=== PATIENT | male | born 2000 | race Caucasian/White ===

== ENCOUNTER 2023-08-18 09:50 | Outpatient (AMB) | payer OTHER, SELFPAY ==
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
[2023-08-18 09:57] VITALS: BP 122/88; PULSE 87; RESP 18; TEMP 36.9; O2SAT 97; BMI 32.5
== END 2023-08-18 10:40 | disposition home or self-care (01) ==
PROVIDERS: Visit Provider Internal Medicine
DX: Z00.00 Encounter for general adult medical examination without abnormal findings (principal); R07.9 Chest pain, unspecified; S29.9XXS Unspecified injury of thorax, sequela; E04.9 Nontoxic goiter, unspecified
CPT/HCPCS: 99385

== ENCOUNTER 2023-08-18 10:51 | Outpatient (REF) | payer OTHER, SELFPAY ==
[2023-08-18 14:27] LABS: MANUAL DIFF FLAG NO
[2023-08-18 14:41] LABS: Basophils Absolute Auto 0.1 X10*3/uL (0.0-0.2); Eosinophils Absolute Auto 0.2 X10*3/uL (0.0-0.4); Hematocrit 46.5 % (42.0-52.0); Hemoglobin 15.8 g/dl (14.0-18.0); Imm Gran Abs Auto 0.04 X10*3/uL (0.00-0.03); Imm Gran Pct Auto 0.4 % (0.0-0.4); Lymphocytes Absolute Auto 2.8 X10*3/uL (1.2-4.9); Lymphocytes Percent Auto 30.4 % (20-40); Mean Corpuscular Hemoglobin 29.6 pg (27.0-33.0); Mean Corpuscular Volume 87.1 fL (80.0-98.0); Mean Platelet Volume 12.7 fL (9.4-12.4); Monocytes Absolute Auto 0.8 X10*3/uL (0.1-1.2); Monocytes Percent Auto 8.7 % (2-11); Neutrophils Absolute Auto 5.2 x10*3/uL (2.0-8.3); Neutrophils Percent Auto 57.5 % (45-73); Platelet Count 249 X10*3/uL (160-400); Red Blood Count 5.34 X10*6/uL (4.60-5.80); Red Cell Distribution Width 12.7 % (11.0-16.0); White Blood Count 9.1 X10*3/uL (4.8-10.8)
[2023-08-18 15:30] LABS: Alanine Aminotransferase 76 U/L (0-40); Albumin Level 4.6 g/dL (3.5-5.0); Alkaline Phosphatase 107 U/L (39-117); Anion Gap 16 (12-20); Aspartate Amino Transferase 35 U/L (5-37); Bilirubin Total 0.4 mg/dL (0.0-1.0); Blood Urea Nitrogen 14 mg/dL (9-16); Calcium 9.5 mg/dL (8.4-10.2); Carbon Dioxide 21 mmol/L (22-29); Chloride 109 mmol/L (96-108); Cholesterol 170 mg/dL (<200); Estimated Glomerular Filt Rate > 60; Glucose Random 99 mg/dL (60-115); HDL Cholesterol 59 mg/dL (>40); LDL Cholesterol Calculated 86 mg/dL (<100); Potassium 3.8 mmol/L (3.3-5.1); Sodium 142 mmol/L (135-145); Total Protein 7.7 g/dL (6.5-8.0); Triglycerides 128 mg/dL (<150)
== END 2023-08-18 10:52 | disposition home or self-care (01) ==
LOC: HO.WFDLDS 10:51
PROVIDERS: Visit Provider Internal Medicine
DX: Z13.220 Encounter for screening for lipoid disorders (principal); Z13.0 Encounter for screening for diseases of the blood and blood-forming organs and certain disorders involving the immune mechanism; Z13.228 Encounter for screening for other metabolic disorders; Z13.6 Encounter for screening for cardiovascular disorders; E04.9 Nontoxic goiter, unspecified
CPT/HCPCS: 36415; 80053; 80061; 84443; 85025

== ENCOUNTER 2024-03-19 09:01 | Outpatient (AMB) | payer OTHER, SELFPAY ==
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
[2024-03-19 09:07] VITALS: BP 136/86; PULSE 96; O2SAT 98; BMI 32.8
--- OUTSIDE RECORDS SUMMARY | 2024-03-20 19:13 | XMS_ITS | Continuity of Care Document ---
Author Name [facility] Organization [facility] Care Team Providers Care Quality Inspector Name Role Phone [facility] Unavailable Unavailable Problems Combined list of problems from Department of Defense and Veterans Affairs facilities. It does not include entries that were removed or entered in error. Problem Status Onset Date Problem Type Date of Resolution Comments Source EXAM, FORMAL OCCUPATIONAL HEALTH PROGRAM INCLUDING HEARING CONSERVATION PROGRAM, PERIODIC FOR CONTINUED SURVEILLANCE FOR OCCUPATIONAL WORKPLACE EXPOSURE Active 4 Diagnosis 5524N-TH-V- MEDGRP-SJ ASSESSMENT, POST-DEPLOYMENT, DOCUMENTED ON OR2823 Inactive 2 Condition [facility] Chronic rhinitis Active Condition DoD Gastro-esophageal reflux disease without esophagitis Active Condition DoD Other injury of other muscle(s) and tendon(s) at lower leg level, right leg Active Condition [facility] No Known Problems Active Condition [facility] Medications Combined list of outpatient medications from Department of Defense and Veterans Affairs facilities.Medications provided include 1) outpatient medications from the last 15 months, and 2) patient-reported medications. Medication Details Route Status Patient Instructions Prescription Expires Prescription Number Last Dispense Date Ordering Provider Order Date Order Qty Source fluoride 1.1% topical paste See Instruct ions, Apply 1 thin ribbon to toothbru sh. [place] thorough ly at bedtime as directed by provider . do not rinse, eat or drink for 30 minutes. , # 51 g, 3 total refill(s ), Maintena nce, Apply 1 thin ribbon to toothbru sh. [place] thorough ly at bedtime as directed by provider . do not rinse, eat or drink for 30 minutes. , Pharmacy : [facility] Ordered 51.0 0310C-A F-C-66t h MED[facility] 20 mg oral delayed release tablet 1 tab(s), Oral, BID, before a meal, # 42 tab(s), 0 total refill(s ), Maintena nce Oral (given by mouth) Ordered 42.0 0C-A F-C-4Th MEDGRP- SJ Sodium Fluoride (PreviDent 5000 Booster Eq.) Paste 1.1% Dental Take or use exactly as directed . Active 08/17/2024 [id number] 4 2023 51 [facility] Allergies, Adverse Reactions, Alerts Combined list of allergies from Department of Defense and Veterans Affairs facilities. It does not include entries that were removed or entered in error. Substance Category Reaction Severity Reaction type Status Date Reported Comments Source No Known Allergies Drug allergy (disorder) active 12/20/2017 [facility] Immunizations Combined list of available immunizations from the Department of Defense and Veterans Affairs facilities. Immunization Series Date Given Administered By Site Reaction Lot Number CVX Code Drug Director Of Food And Beverage Services Status Comments Source influenza virus vaccine, inactivated 2021 ALYCIAMJOHNSO N Shoul warren, left (delt oid) [id number] 150 ID [employer] April complet ed influenza virus vaccine, inactivat ed 03/29/22 Given 0090C-A F-C-4Th MEDGRP- SJ anthrax vaccine 1 2021 [id number] [employer]gent [employer] Ruffin (MIP) complet ed anthrax vaccine DoD influenza, injectable, quadrivalent- pf 2020 [id number] 150 GlaxoSmithKli ne complet ed influenza , injectabl e, quadrival ent-pf 01/29/21 Given Ambulat ory Pharmac y Influenza, injectable, quadrivalent, preservative free 1 2020 [id number] 150 Smithine (SKB) complet ed Influenza , injectabl e, quadrival ent, preservat lata free DoD typhoid Vi capsular polysaccharid e vac 2020 [id number] sanofi pasteur complet ed typhoid Vi capsular polysacch aride vac 12/04/20 Given Ambulat ory Pharmac y typhoid Vi capsular polysaccharid e vaccine 1 2020 [id number] 101 Sanofi Pasteur (PMC) complet ed typhoid Vi capsular polysacch aride vaccine DoD COVID Vaccine Pfizer 2020 Srikanth boogie Arm [id number] 208 PFIZER complet ed COVID Vaccine Pfizer 11/13/20 Given Ambulat ory Pharmac y SARS-COV-2 (COVID-19) vaccine, mRNA, spike protein, LNP, preservative free, 30 mcg/0.3mL dose 2 2020 CHANO CASTORENA [place] [id number] 208 Pfizer, Inc (PFR) complet ed SARS-COV- 2 (COVID-19 ) vaccine, mRNA, spike protein, LNP, preservat lata free, 30 mcg/0.3mL dose DoD COVID Vaccine Pfizer 2020 Srikanth boogie Arm [id number] 208 PFIZER complet ed COVID Vaccine Pfizer 10/23/20 Given Ambulat ory Pharmac y SARS-COV-2 (COVID-19) vaccine, mRNA, spike protein, LNP, preservative free, 30 mcg/0.3mL dose 1 2020 TERRANCE JULIAN [id number] 208 Pfizer, Inc (PFR) complet ed SARS-COV- 2 (COVID-19 ) vaccine, mRNA, spike protein, LNP, preservat lata free, 30 mcg/0.3mL dose DoD Human Papillomaviru s 9-valent vaccine 2019 [id number] 165 Merck & Company Inc complet ed Human Papilloma virus 9-valent vaccine 01/16/20 Given Ambulat ory Pharmac y influenza, injectable, quadrivalent 2019 [id number] 158 Seqirus complet ed influenza , injectabl e, quadrival ent 01/16/20 Given Ambulat ory Pharmac y influenza, injectable, quadrivalent, contains preservative 1 2019 [id number] 696 158 Seqirus (SEQ) complet ed influenza , injectabl e, quadrival ent, contains preservat lata DoD Human Papillomaviru s 9-valent vaccine 3 2019 [id number] 165 Merck (MSD) complet ed Human Papilloma virus 9-valent vaccine DoD Human Papillomaviru s 9-valent vaccine 2018 [id number] 165 Merck & Company Inc complet ed Human Papilloma virus 9-valent vaccine 04/08/19 Given Ambulat ory Pharmac y Human Papillomaviru s 9-valent vaccine 2 2018 [id number] 165 Merck (MSD) complet ed Human Papilloma virus 9-valent vaccine DoD influenza, injectable, quadrivalent- pf 2018 [id number] 346 150 Seqirus complet ed influenza , injectabl e, quadrival ent-pf 03/21/19 Given Ambulat ory Pharmac y Influenza, injectable, quadrivalent, preservative free 1 2018 [id number] 346 150 Seqirus (SEQ) complet ed Influenza , injectabl e, quadrival ent, preservat lata free DoD Human Papillomaviru s 9-valent vaccine 2018 [id number] 165 Merck & Company Inc complet ed Human Papilloma virus 9-valent vaccine 02/06/19 Given Ambulat ory Pharmac y Human Papillomaviru s 9-valent vaccine 1 2018 [id number] 165 Merck (MSD) complet ed Human Papilloma virus 9-valent vaccine DoD hepatitis A adult vaccine 2018 [id number] 52 GlaxoSmithKli ne complet ed hepatitis A adult vaccine 05/15/18 Given Ambulat ory Pharmac y hepatitis A vaccine, adult dosage 2 2018 [id number] 52 SmithKline (SKB) complet ed hepatitis A vaccine, adult dosage DoD influenza, injectable, quadrivalent- pf 2017 [id number] 150 GlaxoSmithKli ne complet ed influenza , injectabl e, quadrival ent-pf 02/21/18 Given Ambulat ory Pharmac y Influenza, injectable, quadrivalent, preservative free 0 2017 [id number] 150 SmithKline (SKB) complet ed Influenza , injectabl e, quadrival ent, preservat lata free DoD varicella virus vaccine 2017 [id number] 21 Merck & Company Inc complet ed varicella virus vaccine 12/04/17 Given Ambulat ory Pharmac y measles/mumps /rubella virus vaccine 2017 [id number] 03 Merck & Company Inc complet ed measles/m umps/rube lla virus vaccine 12/04/17 Given Ambulat ory Pharmac y measles, mumps and rubella virus vaccine 2 2017 [id number] 03 Merck (MSD) complet ed measles, mumps and rubella virus vaccine DoD varicella virus vaccine 1 2017 [id number] 21 Merck (MSD) complet ed varicella virus vaccine DoD measles/mumps /rubella virus vaccine 2017 [id number] 03 Merck & Company Inc complet ed measles/m umps/rube lla virus vaccine 10/25/17 Given Ambulat ory Pharmac y hepatitis A adult vaccine 2017 [id number] 52 GlaxoSmithKli ne complet ed hepatitis A adult vaccine 10/25/17 Given Ambulat ory Pharmac y varicella virus vaccine 2017 [id number] 21 Merck & Company Inc complet ed varicella virus vaccine 10/25/17 Given Ambulat ory Pharmac y measles, mumps and rubella virus vaccine 1 2017 [id number] 03 Merck (MSD) complet ed measles, mumps and rubella virus vaccine DoD varicella virus vaccine 1 2017 [id number] 21 Merck (MSD) complet ed varicella virus vaccine DoD hepatitis A vaccine, adult dosage 1 2017 [id number] 52 Venturi Wirelessine (SKB) complet ed hepatitis A vaccine, adult dosage DoD adenovirus vaccine, live 2017 [id number] 2 143 Teva Pharmaceutica complet ed adenoviru s vaccine, live 10/19/17 Given Ambulat ory Pharmac y tetanus, diphtheria, acellular pertu is 2017 [id number] 115 [facility] ed tetanus, diphtheri a, acellular pertussis 10/19/17 Given Ambulat ory Pharmac y meningococcal A,C,Y,W-135 (MCV4P) 2017 [id number] 114 sanofi pasteur complet ed meningoco ccal A,C,Y,W-1 35 (MCV4P) 10/19/17 Given Ambulat ory Pharmac y poliovirus vaccine, inactivated 2017 [id number] 10 sanofi pasteur complet ed polioviru s vaccine, inactivat ed 10/19/17 Given Ambulat ory Pharmac y poliovirus vaccine, inactivated 1 2017 [id number] 10 Sanofi Pasteur (PMC) complet ed polioviru s vaccine, inactivat ed DoD meningococcal polysaccharid e (groups A, C, Y and W-135) diphtheria toxoid conjugate vaccine (MCV4P) 1 2017 [id number] 114 Sanofi Pasteur (PMC) complet ed meningoco ccal polysacch aride (groups A, C, Y and W-135) diphtheri a toxoid conjugate vaccine (MCV4P) DoD tetanus toxoid, reduced diphtheria toxoid, and acellular pertu is vaccine, adsorbed 1 2017 [id number] 115 Venturi Wirelessine (SKB) complet ed tetanus toxoid, reduced diphtheri a toxoid, and acellular pertussis vaccine, adsorbed DoD Adenovirus, type 4 and type 7, live, oral 1 2017 [id number] 2 143 [employer] (BRR) complet ed Adenoviru s, type 4 and type 7, live, oral DoD measles virus vaccine 0 2017 05 () Not Given measles virus vaccine DoD rubella virus vaccine 0 2017 06 () Not Given rubella virus vaccine DoD hepatitis B vaccine, unspecified formulation 0 2017 45 () Not Given hepatitis B vaccine, unspecifi ed formulati on DoD Results Combined list of recent chemistry, hematology and other laboratory results from Department of Defense and Veterans Affairs, ranging from 15 months to all on record, depending upon the facility. Order Name Results Value Reference Range Date Interpretation Specimen Comments Source Thuan torres [facility] Repository Sample Received (09/08/23 9:38 AM) 09/07 N [facility] Pharmacy Infectio us Disease HIV-1/O/2 Non-Reac tive 3 (09/08/23 9:38 AM) 09/07 N Interpretiv e Data: INTERPRETAT ION: This method is a screening procedure for the detection of HIV p24 Antigen and Antibodies to HIV-1, including Group O, and/or HIV-2. NON-REACTIV E: HIV-1 antigen and HIV-1 / HIV-2 antibodies were not detected. No laboratory evidence of HIV infection. A negative test result does not exclude the possibility of exposure to or infection with HIV. HIV antibodies and/or p24 antigen may be undetectabl e in some stages of the infection and in some clinical conditions. If acute HIV infection is suspected, consider submitting another specimen to a reference laboratory for HIV-1 RNA. SCREEN REACTIVE - CONFIRMATIO N TO FOLLOW: Possible presence of HIV-1antibo dies, HIV-2 antibodies and/or HIV-1 p24 antigen. Specimen will reflex to the confirmatio n testing that fulfills the Center for Disease Control and Prevention' s HIV diagnostic algorithm. Refer to [facility] Lab Guide for additional information : [email or web address]/la [email or web address] x Testing performed by Alannah powell. [facility] Infectio us Disease HIV-1/O/2. EPI NON-REAC TIVE 01/28 Result Comment: INTERPRETAT ION(S): This method is a screening procedure for the detection of HIV p24 Antigen and Antibodies to HIV-1, including Group O, and/or HIV-2. NON-REACTIV E: HIV-1 antigen and HIV-1 / HIV-2 antibodies were not detected. No laboratory evidence of HIV infection. A negative test result does not exclude the possibility of exposure to or infection with HIV. HIV antibodies and/or p24 antigen may be undetectabl e in some stages of the infection and in some clinical conditions. If acute HIV infection is suspected, consider submitting another specimen to a reference laboratory for HIV-1 RNA. SCREEN REACTIVE - CONFIRMATIO N TO FOLLOW: Possible presence of HIV-1 antibodies, HIV-2 antibodies and/or HIV-1 p24 antigen. Specimen will reflex to the confirmatio n testing that fulfills the Center for Disease Control and Prevention' s HIV diagnostic algorithm. Refer to [facility] Lab Guide for additional information : [email or web address]/ [email or web address]/EPIL ab/Pages/la [email or web address] x Testing performed by Alannah powell. Performed by: [facility] [employer] [address] [place] [id number] [facility] Ericacella melissa Sendouts Repository Sample.EPI RECEIVED 01/28 Result Comment: INTERPRETAT ION(S): Performed by: [facility] [employer] [address] [place] [id number] [facility] Vital Signs Combined list of inpatient and outpatient Vital Signs from Department of Defense and Veterans Affairs, ranging from 12 months to all on record, depending upon the facility. Vital Sign Value Date Comments Source Systolic Blood Pressure 122mm[Hg] 07/27/2022 12:37:00 Ambulatory Pharmacy Diastolic Blood Pressure 96mm[Hg] 07/27/2022 12:37:00 Ambulatory Pharmacy Mean Arterial Pressure, Calc 105mm[Hg] 07/27/2022 12:37:00 Ambulatory P harmacy Peripheral Pulse Rate 86bpm 07/27/2022 12:37:00 Ambulatory Pharmacy Respiratory Rate 16br/min 07/27/2022 12:37:00 Ambulatory Pharmacy BP Site 07/27/2022 12:37:00 Ambul atory Pharmacy Blood Pressure Manual 07/27/2022 12:37:00 Ambulatory Pharmacy Systolic Blood Pressure 119mm[Hg] 07/25/2022 18:18:00 Ambulatory Pharmacy Diastolic Blood Pressure 86mm[Hg] 07/25/2022 18:18:00 Ambulatory Pharmacy Mean Arterial Pressure, Calc 97mm[Hg] 07/25/2022 18:18:00 Ambulatory P harmacy Peripheral Pulse Rate 92bpm 07/25/2022 18:18:00 Ambulatory Pharmacy Respiratory Rate 16br/min 07/25/2022 18:18:00 Ambulatory Pharmacy BP Site 07/25/2022 18:18:00 Ambul atory Pharmacy Blood Pressure Manual 07/25/2022 18:18:00 Ambulatory Pharmacy Systolic Blood Pressure 132mm[Hg] 07/22/2022 18:49:00 Ambulatory Pharmacy Diastolic Blood Pressure 70mm[Hg] 07/22/2022 18:49:00 Ambulatory Pharmacy Mean Arterial Pressure, Calc 91mm[Hg] 07/22/2022 18:49:00 Ambulatory P harmacy Peripheral Pulse Rate 78bpm 07/22/2022 18:49:00 Ambulatory Pharmacy Respiratory Rate 18br/min 07/22/2022 18:49:00 Ambulatory Pharmacy Temperature Tympanic 36.5Cel 07/22/2022 18:49:00 Ambulatory Pharmacy BP Site 07/22/2022 18:49:00 Ambul atory Pharmacy Blood Pressure Manual 07/22/2022 18:49:00 Ambulatory Pharmacy Systolic Blood Pressure 134mm[Hg] 07/13/2022 12:14:00 Ambulatory Pharmacy Diastolic Blood Pressure 84mm[Hg] 07/13/2022 12:14:00 Ambulatory Pharmacy Mean Arterial Pressure, Calc 101mm[Hg] 07/13/2022 12:14:00 Ambulatory P harmacy Peripheral Pulse Rate 98bpm 07/13/2022 12:14:00 Ambulatory Pharmacy Respiratory Rate 18br/min 07/13/2022 12:14:00 Ambulatory Pharmacy Temperature Oral 36.7Cel 07/13/2022 12:14:00 Ambulatory Pharmacy Systolic Blood Pressure 114mm[Hg] 07/26/2022 11:58:00 Ambulatory Pharmacy Diastolic Blood Pressure 90mm[Hg] 07/26/2022 11:58:00 Ambulatory Pharmacy Mean Arterial Pressure, Calc 98mm[Hg] 07/26/2022 11:58:00 Ambulatory P harmacy Peripheral Pulse Rate 92bpm 07/26/2022 11:58:00 Ambulatory Pharmacy Respiratory Rate 16br/min 07/26/2022 11:58:00 Ambulatory Pharmacy BP Site 07/26/2022 11:58:00 Ambul atory Pharmacy Blood Pressure Manual 07/26/2022 11:58:00 Ambulatory Pharmacy Encounters Combined list of: 1) Encounters from Department of Veterans Affairs facilities going back up to thelast 18 months. 2) Encounters from the Department of Defense facilities going back up to 280 months. Location Location Details Encounter Type Encounter Number Reason For Visit Attending Provider ADM Date DC Date Status Disposition Source [facility] [place] [address](Hea ring Conservat ion, BMT) OUTPATIENT [id number] GALILEA RODRIGUEZ 10/26 Released w/o Limitations [facility] [place] [address](H earing Conserv ation, BMT) [facility] [place] [address]([facility]) OUTPATIENT [id number] Notes Entered by: ROSS CAVANAUGH 30 Oct 2017 0728 ------- ------- ------- ------- -- Strep Prophyl axis LANI CAVANAUGH 10/30 Released w/o Limitations [facility] [place] [address]([facility] d) [facility] [place] [address](LISA Alpha) OUTPATIENT [id number] Notes Entered by: KYAW EAST 03 Nov 2017 1020 ------- ------- ------- ------- -- allergy symptom s SANTY LAGUNA 11/03 Released w/o Limitations [facility] [place] [address](M Alpha) [place] OUTPATIENT [id number] LT THIRD TOE IGT MARIA FERNANDA DEWITT 01/23 Released w/o Limitations [place]) [place] OUTPATIENT [id number] Notes Entered by: NACHO PEÑA 07 Feb 2018 0544 ------- ------- ------- ------- -- RT KNEE IZABELA ZUÑIGAARPIT 02/07 Released with Work/Duty Limitations [place]) [place] Occupatio nal Health) OUTPATIENT [id number] [facility] ROSI AGUILA 02/12 Released w/o Limitations [place] Occupat ional Health) [place]) OUTPATIENT [id number] ATC #[id number] RT KNEE VALERIE ALATORRE 02/26 Released with Work/Duty Limitations [place]) [place]) OUTPATIENT [id number] atc- R KNEE F/U # VALERIE ALATORRE 03/05 Released w/o Limitations [place] C [facility]) [place] Hearing Conservat ion) OUTPATIENT [id number] EDUCATI ON & GEMMA DURAND 03/12 Released w/o Limitations [place] Hearing Conserv ation) [place]) OUTPATIENT [id number] RT KNEE PN IVÁN CRUZ 03/19 Released w/o Limitations [place] C [facility]) [employer]([facility]) OUTPATIENT [id number] [facility] [address] JOEL HOLMAN 05/30 Released w/o Limitations [employer]([facility] IMR Clinic) [employer](HCO S Primary Care) TELE CONSULT [id number] Notes Entered by: MAYDA BENOIT 29 Jun 2018 0757 ------- ------- ------- ------- -- MAYDA Álvarez 06/29 Immediate Referral [employer](H COS Primary Care) [employer](HCO S Primary Care) TELE CONSULT [id number] Notes Entered by: JEFFERSON RODRIGUEZ 29 Jun 2018 1122 ------- ------- ------- ------- -- Request for s MAYDA BENOIT Santiago 06/29 Sick at Home/Quarter s [employer](H COS Primary Care) [employer](HCO S Primary Care) OUTPATIENT [id number] callejas splints ALAYNA MURILLO 07/09 Released w/o Limitations [employer](H COS Primary Care) [employer](HCO S Primary Care) OUTPATIENT [id number] allergi es ALAYNA MURILLO 07/30 Released w/o Limitations [employer](H COS Primary Care) [employer]([facility]) OUTPATIENT [id number] A ONLY ([phone]) XENIA SANABRIA 08/09 Released w/o Limitations [employer](O [facility]) [employer]([facility]) OUTPATIENT [id number] Notes Entered by: GILBERTO CHASE 15 Aug 2018 1032 ------- ------- ------- ------- -- RECORD REVIEW FATMATA DUMONT 08/15 Released w/o Limitations [employer]([facility]) [employer](HCO S Primary Care) OUTPATIENT [id number] PHA RECORD CLOSURE ALAYNA MURILLO 08/15 Released w/o Limitations [employer](H COS Primary Care) [employer](OMR S Primary Care_1) TELE CONSULT [id number] Notes Entered by: YUMIKO LOCKHART SE 25 Sep 2018 1009 ------- ------- ------- ------- -- pt seen at the er and needs s MAYDA BENOIT Santiago 09/25 Other Not Elsewhere Classified [employer](O MRS Primary Care_1) [employer](HCO S Primary Care) TELE CONSULT [id number] Notes Entered by: Laina PRAJAPATI 24 Oct 2018 0859 ------- ------- ------- ------- -- Network Results UC Back Pain 3.22.20 19 LIDIAALAYNA Crow 10/24 [facility]) [facility] Primary Care) TELE CONSULT [id number] Notes Entered by: CÉSAR HENSON 06 Nov 2018 1125 ------- ------- ------- ------- -- Qtr/ Con leave for wisdom teeth being removed . [id number] MAYDA BENOIT 11/06 Other Not Elsewhere Classified [facility] Primary Care) [facility] Primary Care) OUTPATIENT [id number] rt leg pain LIDIAALAYNA Crow 11/19 Released w/o Limitations [facility] Primary Care) [facility] S Physical Therapy) OUTPATIENT [id number] Pain in unspeci fied lower leg KENN CAMPOS 12/03 Released w/o Limitations [facility](O MRS Physica l Therapy ) [facility] Primary Care) OUTPATIENT [id number] Rt leg pain X3days. XENIA SELBY 05/14 Released w/o Limitations [facility] Primary Care) [facility](Richi Muñoz) OUTPATIENT [id number] Audiogr am IAN VALENTINO O 05/16 Released w/o Limitations [employer](S jenn Muñoz ) [facility] Primary Care) OUTPATIENT [id number] leg cramp on last lap of PT test - stopped LIDIAALAYNA Crow 05/23 Released w/o Limitations [facility] Primary Care) [facility](R S IMR Clinic) OUTPATIENT [id number] [place] [address]A FATMATA CORRIGAN 05/30 Released w/o Limitations [employer](O [facility] IMR Clinic) [facility](O Primary Care) OUTPATIENT [id number] cough,s ore throat, running nose [id number] /not getting better. XENIA SELBY 06/16 Released w/o Limitations [employer](H COS Primary Care) [employer](OMR S Physical Therapy) OUTPATIENT [id number] Pain in left leg KENN CAMPOS 07/01 Released w/o Limitations [employer](O MRS Physica l Therapy ) [employer](OMR S Primary Care_1) TELE CONSULT [id number] Notes Entered by: Rebecca GOODE 07 Aug 2019 1445 ------- ------- ------- ------- -- PRIORIT Y PHA NEGRAFFENR JESUS PINA S 08/06 Advice Assessment [employer](O MRS Primary Care_1) [employer](HCO S Primary Care) OUTPATIENT [id number] PHA RECORD CLOSURE ALAYNA MURILLO 10/02 Released w/o Limitations [employer](H COS Primary Care) [employer](OMR S Flight Med) OUTPATIENT [id number] Notes Entered by: LOY HANCOCK 13 Dec 2019 1018 ------- ------- ------- ------- -- cough x 4days JOSE CURTIS 12/12 Sick at Home/Quarter s [employer](O MRS Flight Med) [employer]([facility]) OUTPATIENT [id number] DRCIERRA 1 SPENCER HONEYCUTT 02/24 Released w/o Limitations [employer](O MRS IMR Clinic) [employer](Richi Muñoz) OUTPATIENT [id number] AUDIOGR AM TERRANCE JULIAN 05/26 Released w/o Limitations [employer](S jenn Muñoz ) [employer](OMR S Flight Med) OUTPATIENT [id number] JOEL HOLMAN 05/27 Released w/o Limitations [employer](O MRS Flight Med) [employer]([facility]) OUTPATIENT [id number] Notes Entered by: BALWINDER CAIN 07 Aug 2020 0838 ------- ------- ------- ------- -- VDC IVA VÁZQUEZ 08/07 Released w/o Limitations [employer](V irus Detecti on Center) [employer](Vir us Detection Center) OUTPATIENT [id number] Notes Entered by: KIMBERLY DONNELLY 10 Aug 2020 0906 ------- ------- ------- ------- -- vd ZIA GALLARDO 08/10 Sick at Home/Quarter s [employer](V irus Detecti on Center) [facility](HCO S Primary Care) TELE CONSULT [id number] Notes Entered by: OLIVIA GALLARDO 11 Aug 2020 0734 ------- ------- ------- ------- -- Negativ e COVID test ANNE-MARIE MAY 08/11 Released to Self Care [employer](H COS Primary Care) [facility](OMR S IMR Clinic) OUTPATIENT [id number] MHA/PHA ) SPENCER HONEYCUTT 11/10 Released w/o Limitations [facility] [facility](O MRS IMR Clinic) [facility] S IMR Clinic) TELE CONSULT [id number] Notes Entered by: Ollie PAGAN 30 Nov 2020 0947 ------- ------- ------- ------- -- [facility] STATUS FRANCISCO PAGAN 11/30 Released to Self Care [employer] [facility](O MRS IMR Clinic) [employer](OMR S Primary Care_1) OUTPATIENT [id number] Notes Entered by: Crow SIMON 04 Dec 2020 1502 ------- ------- ------- ------- -- SAYRA Molina 12/04 Released w/o Limitations [employer] [facility] [employer](O MRS Primary Care_1) [employer]([facility] us Detection Center) OUTPATIENT [id number] 5 Notes Entered by: YENNI SPAULDING 23 Apr 2021 0957 ------- ------- ------- ------- -- VDC AVANI BENNETT 04/23 Sick at Home/Quarter s [facility](V ir[facility] Detecti on Center) [facility](HCO S Primary Care) TELE CONSULT [id number] Notes Entered by: MARK SANTIAGO 23 Apr 2021 1112 ------- ------- ------- ------- -- COVID AVANI BENNETT 04/23 [facility](H COS Primary Care) [facility](OMR S Flight Med) TELE CONSULT [id number] Notes Entered by: Ollie PAGAN 13 May 2021 1530 ------- ------- ------- ------- -- [facility] REVIEW FRANCISCO PAGAN 05/13 Released to Self Care [employer](O MRS Flight Med) [facility](OMR S Primary Care_1) OUTPATIENT [id number] STEF GRANT 05/28 Released w/o Limitations [facility] [facility](O MRS Primary Care_1) [employer]([facility]) OUTPATIENT [id number] AUDIOGR CHANO PERALES 06/07 Released w/o Limitations [facility] [facility](P ublic Health) [facility] [facility](OMR S Flight Med) OUTPATIENT [id number] [facility] [address] WILLOW BARRIENTOS 06/17 Released w/o Limitations [employer](O MRS Flight Med) [facility] OUTPATIENT [id number] Theater Provider 01/06 Released w/o Limitations Theater Facilit y [id number]-AF- C-[facility]Th [facility]- Clinic [id number] EXAM, FORMAL OCCUPAT IONAL HEALTH PROGRAM INCLUDI NG HEARING CONSERV ATION PROGRAM , PERIODI C FOR CONTINU ED SURVEIL GRISELDA FOR OCCUPAT IONAL WORKPLA ADAMA SHAIKH 06/01 Discharge Disposition: Home or Self Care 0090C-A F-C-[facility] [place] 309C-AF- C-[facility]th [facility] [id number] TRAN AMAYA 07/26 Discharge Disposition: Home or Self Care 0310C-A F-C-66t h [facility] 309C-AF- C- [facility] [id number] GAIL BORJA 08/17 Discharge Disposition: Home or Self Care 0310C-A F-C-66t h [facility] [id number] AMDS Outpatient [id number] ADENIKE DUTTA 09/08 Discharge Disposition: Home or Self Care [id number] AMDS 309C-AF- C- [facility] Between Visit [id number] 03/20 0310C-A F-C-66t h [facility] Procedures Combined list of: 1) Procedures from Department of Veterans Affairs facilities going back up to thelast 18 months, not all [place] non-surgical procedures are included; 2) All procedures from the Department of Defense facilities. 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 QUALIFIED,EDUCATION, TRAIN,LICENSURE/REGU LATION (WHEN APPLICABLE) EDUC SER RENDERED TO PATS IN A GRP SETTING (EG,,OBESITY ,OR DIABETIC INSTRUCT) 2017 [facility] THERAPEUTIC PROCEDURE,1 OR MORE AREAS,EACH 15 MINUTES;NEUROMUSCULA R REEDUCATION OF MOVEMENT,BALANCE,NEGATIVE NOTCHER RDINATION,KINESTHETI C SENSE,POSTURE,AND/OR PROPRIOCEPTION FOR SITTING AND/OR STANDING ACTIVITIES 2017 [facility] THERAPEUTIC PROCEDURE,1 OR MORE AREAS,EACH 15 MINUTES;NEUROMUSCULA R REEDUCATION OF MOVEMENT,BALANCE,NEGATIVE NOTCHER RDINATION,KINESTHETI C SENSE,POSTURE,AND/OR PROPRIOCEPTION FOR SITTING AND/OR STANDING ACTIVITIES 2017 [facility] PURE TONE AUDIOMETRY (THRESHOLD), AUTOMATED; AIR ONLY 2021 [facility] PSYCHOLOGICAL OR NEUROPSYCHOLOGICAL TEST ADMINISTRATION, WITH SINGLE AUTOMATED, STANDARDIZED INSTRUMENT VIA ELECTRONIC PLATFORM, WITH AUTOMATED RESULT ONLY 2020 [facility] ADMINISTRATION OF PATIENT-FOCUSED HEALTH RISK ASSESSMENT INSTRUMENT (EG, HEALTH HAZARD APPRAISAL) WITH SCORING AND DOCUMENTATION, PER STANDARDIZED INSTRUMENT 2020 [facility] ADMINISTRATION OF PATIENT-FOCUSED HEALTH RISK ASSESSMENT INSTRUMENT (EG, HEALTH HAZARD APPRAISAL) WITH SCORING AND DOCUMENTATION, PER STANDARDIZED INSTRUMENT 2019 [facility] PSYCHOLOGICAL OR NEUROPSYCHOLOGICAL TEST ADMINISTRATION, WITH SINGLE AUTOMATED, STANDARDIZED INSTRUMENT VIA ELECTRONIC PLATFORM, WITH AUTOMATED RESULT ONLY 2019 [facility] ADMINISTRATION OF PATIENT-FOCUSED HEALTH RISK ASSESSMENT INSTRUMENT (EG, HEALTH HAZARD APPRAISAL) WITH SCORING AND DOCUMENTATION, PER STANDARDIZED INSTRUMENT 2019 [facility] WAIVER SERVICES; NOT OTHERWISE SPECIFIED (NOS) 2019 [facility] PHYSICAL OR MANIPULATIVE THERAPY PERFORMED FOR MAINTENANCE RATHER THAN SHINTO 2019 [facility] PHYSICAL THERAPY EVALUATION:LOW COMPLEXITY,REQ:HIST W NO PERS FACT &/COMORB THAT IMPACT PLAN OF CARE;CLIN DECIS MAKING OF LOW COMPLEXITY,TYPICALLY ,20 MIN ARE SPENT [id number]-TV-[id number] W THE PATIENT &/FAMILY 2018 [facility] TELE ASSESS & MGT SRV PROV QUAL NONPHYS HLTH CARE PRO TO EST PAT,PARENT,GUARD NOT ORIG REL ASSESS & MGT SRV PROV W/IN PREV 7 DAYS NOR LEAD ASSESS & MGT SRV/PX W/IN NXT 24 HR/SOON APT;5-10 MIN MED DIS 2018 DoD TELE ASSESS & MGT SRV PROV QUAL NONPHYS HLTH CARE PRO TO EST PAT,PARENT,GUARD NOT ORIG REL ASSESS & MGT SRV PROV W/IN PREV 7 DAYS NOR LEAD ASSESS & MGT SRV/PX W/IN NXT 24 HR/SOON APT;5-10 MIN MED DIS 2018 [facility] ADMINISTRATION OF PATIENT-FOCUSED HEALTH RISK ASSESSMENT INSTRUMENT (EG, HEALTH HAZARD APPRAISAL) WITH SCORING AND DOCUMENTATION, PER STANDARDIZED INSTRUMENT 2018 [facility] ADMINISTRATION OF PATIENT-FOCUSED HEALTH RISK ASSESSMENT INSTRUMENT (EG, HEALTH HAZARD APPRAISAL) WITH SCORING AND DOCUMENTATION, PER STANDARDIZED INSTRUMENT 2018 Do[facility] ONLINE ASSESS &MANAG SERV PROVIDE,A QUAL NONPHYS HCP TO AN ESTABLISHED PAT/GUARDIAN,NOT ORIGINAT FRM RELAT ASSESS &MANAG SERV PROVIDE W/IN THE PREV 7 DAYS,USE THE INTERNET/SIMILAR [email or web address] COMM NETWORK 2018 DoD TELE ASSESS & MGT SRV PROV QUAL NONPHYS HLTH CARE PRO TO EST PAT,PARENT,GUARD NOT ORIG REL ASSESS & MGT SRV PROV W/IN PREV 7 DAYS NOR LEAD ASSESS & MGT SRV/PX W/IN NXT 24H/SOON APT; 11-20 MIN MED DIS 2018 [facility] THERAPEUTIC, PROPHYLACTIC, OR DIAGNOSTIC INJECTION (SPECIFY SUBSTANCE OR DRUG); SUBCUTANEOUS OR INTRAMUSCULAR 2017 [facility] PURE TONE AUDIOMETRY (THRESHOLD); AIR ONLY 2017 [facility] Non-Physician Phone Call To Patient/Provider Brief (5-10min) Non-Physician Phone Call To Patient/Provider Brief (5-10min) [id number] 2018 MAYDA BENOIT [facility] Non-Physician Phone Call To Patient/Provider Brief (5-10min) Non-Physician Phone Call To Patient/Provider Brief (5-10min) [id number] 2018 MAYDA BENOIT [facility] Preventive Medicine Administration Of Health Risk Questionnaire Patient-Focused Preventive Medicine Administration Of Health Risk Questionnaire Patient-Focused [id number] 2018 ALAYNA MURILLO [facility] Internet Med Svc Qual Nonphys Healthcare Prof Up To 7 Days Estab Patient Internet Med Svc Qual Nonphys Healthcare Prof Up To 7 Days Estab Patient [id number] 2018 XENIA SELBY [facility] Preventive Medicine Administration Of Health Risk Questionnaire Patient-Focused Preventive Medicine Administration Of Health Risk Questionnaire Patient-Focused [id number] 2018 XENIA SELBY [facility] Non-Physician Phone Call To Pt/Provider Intermed (11-20 min) Non-Physician Phone Call To Pt/Provider Intermed (11-20 min) [id number] 2018 MAYDA BENOIT [facility] Physician Supervised Group Educational Services Physician Supervised Group Educational Services [id number] 2017 GEMMA CHEEMA [facility] Physician Supervised Services Provision Of Educational Supplies Physician Supervised Services Provision Of Educational Supplies [id number] 2017 GEMMA CHEEMA [facility] Athletic Training Evaluation Low Complexity Athletic Training Evaluation Low Complexity [id number] 2017 VALERIE ALATORRE [facility] Physical Therapy Neuromuscular Re-education Physical Therapy Neuromuscular Re-education 92317 2017 VALERIE ALATORRE 15 min exercise to develop balance, coordination, kinesthetic sense, posture, core stability, efficiency of muscle contraction, motor recruitment patterns quadriceps, hamstring, gastroc, soleus stretch quad sets SLR ABD, FLEX with quad sets clamshells non impact cardio; bike or elliptical *pt reports having actually cycled on roads for approx 4-5 miles with no pain during or post session bug begin progressive return to run program as tolerated DoD Athletic Training Evaluation Low Complexity Athletic Training Evaluation Low Complexity 83623 2017 VALERIE ALATORRE [facility] Physical Therapy Neuromuscular Re-education Physical Therapy Neuromuscular Re-education [id number] 2017 VALERIE ALATORRE 15 min exercise to develop balance, coordination, kinesthetic sense, posture, core stability, efficiency of muscle contraction, motor recruitment patterns quadriceps, hamstring, gastroc, soleus stretch quad sets SLR ABD, FLEX with quad sets clamshells non impact cardio; bike or elliptical as able - stop for pain bug DoD Physician Supervised Injection Intramuscular Antibiotic Physician Supervised Injection Intramuscular Antibiotic 66967 2017 LANI CAVANAUGH [facility] Threshold Audiogram (Pure Tone) Threshold Audiogram (Pure Tone) 15325 2017 GALILEA RODRIGUEZ [facility] Physical or manipulative therapy performed for maintenance rather than bahai KENN CAMPOS [facility] Taping Ankle Taping Ankle 55734 JOSE MANUEL CAMPOS [facility] Physical Therapy Service Evaluation Low Complexity Physical Therapy Service Evaluation Low Complexity 61570 KENN CAMPOS [facility] Non-Physician Phone Call To Patient/Provider Brief (5-10min) Non-Physician Phone Call To Patient/Provider Brief (5-10min) [id number] JB PLAZA [facility] Waiver services; not otherwise specified (NOS) JB PLAZA [facility] Preventive Medicine Administration Of Health Risk Questionnaire Patient-Focused Preventive Medicine Administration Of Health Risk Questionnaire Patient-Focused [id number] ALAYNA MURILLO [facility] Psychometric Neuropsych Testing Battery Admin By Computer Psychometric Neuropsych Testing Battery Admin By Computer 99385 JUS SOLOMON I [facility] Threshold Audiogram (Pure Tone) Automated Threshold Audiogram (Pure Tone) Automated 0208T CHANO CASTORENA [facility] No data available for this section Ambulato ry Pharmacy Social History Combined list of available smoking, tobacco, and other social history from Department of Defense and Veterans Affairs facilities. Social History Type Response Date Comment Sourlaina e Male 03/31/2021 Ambulatory Pha rmacy This section is an empty social history section. [facility] Tobacco Never-cigarette user Cigarette use:. Never-other tobacco user (not cigarettes) Other Tobacco use:. Ambulatory Pharmacy Sexual Orientation Ambula tory Pharmacy Gender identity Ambulator y Pharmacy Assessment and Plan Combined list of future care activities from Department of Defense and Veterans Affairs facilities (e.g., assessment and plan notes, appointments, orders, and referrals). Additional future care activities may be listed in the Plan of Care section. 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 ? Pt verbalized understanding and agreed to above plan. All pt questions answered. Pt denies any other questions at this time. ? Time spent in patient care, counseling and reviewing chart was approximately? ?30min. This includes reviewing prior external notes, review of test results, and/or ordering labs or unique tests. Additionally discussed management or interpretation of tests performed.? ? ? Servicemember: o?? Does meet deployment standards. o???Can perform the duties of the assigned [employer] Special[employer] Code (AFSC) o???Meets retention medical standards IAW the MSD o???Can complete the Fitness Assessment (FA) ? 1Lt Mark Lerma PA-C [facility] [place] [place] ? Extracted from:Title: [facility]-06/10 day bp check Author: LOY HANCOCK EMT Date: 07/27/22 1.?Elevated blood pressure reading without diagnosis of hypertension TODAYS BP: 122/96 AVERAGE BP: 118/90 Pt informed that he does not need to schedule a f/u appt. Advised pt to increase water intake, increase exercise, and decrease sodium intake. Gave pt ER precautions. Pt v/u and denied any further questions at this time. ? Extracted from:Title: [facility]-bp check day 05/13 Author: LOY HANCOCK EMT Date: 07/26/22 1.?Elevated blood pressure reading without diagnosis of hypertension TODAYS: 114/90 Pt asked what can cause high blood pressure and I explained that it can be hereditary or can be caused by lifestyle choices. Advised pt to increase water intake, decrease sodium intake and alcohol use. Informed pt that increase in exercise and a healthy diet can also help reduce high blood pressure. Gave pt strict ER precautions. Pt v/u and denied any further questions at this time. ? Extracted from:Title: [facility]- bp check day 04/12 Author: LOY HANCOCK Date: 07/25/22 1.?Elevated blood-pressure reading, without diagnosis of hypertension TODAYS BP: 119/86 Pt advised to come in for next BP check at 0715 tomorrow as he sleeps during the day since he works nights.?Gave strict ER precautions pt v/u and denied any further questions at this time. ? Extracted from:Title: Office Clinic Note Author: AZUL PEOPLES PA-C Date: 07/22/22 1.?Pseudofolliculitis barbae shaving waiver placed advised pt to renew every 5 years PVUA o? Does meet deployment standards. ? o? Can perform the duties of the assigned [employer] Special[employer] Code (AFSC) ? o? Meets retention medical standards IAW the MSD ? o? Can complete the Fitness Assessment (FA) ? 2.?Elevated blood pressure reading without diagnosis of hypertension 132/70 w/ past reading 134/84 Pt did admit to being nervous coming into clinic for medical apt 3 day BP walk in check advised goal: 120/80 PVUA ? ? ? 1Lt Azul Peoples PA-C [facility] [place] [place] [address] Transcribed using [employer].? 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 Assessment Date/Time Source Assessment Type Assessment Skill Assessment Score Assessment Details No data available for this section
--- OUTSIDE RECORDS SUMMARY | 2024-03-20 19:13 | XMS_ITS | Continuity of Care Document ---
Author Organization [facility] Address [address] [place] [address] Phone Care Team Providers Care Veneer Trimmer Name Role Phone Rachel Hill Unavailable Unavailable [...] Date URINALYSIS NONAUTO W/O SCOPE OFFICE/OUTPATIENT VISIT [facility] Advance Directives Directive Yes / No Effective Date File Name No Information Encounters Encounter Description Practice Location Reason(s) For Visit Diagnoses Date Provider Providers Copied on Encounter OFFICE/OUTPAT IENT VISIT [facility], [address] [place], [place], [id number], tel:[phone] [facility] dysuria (chief complaint) Infection, urinary tract NOSBody Mass Index between 19-24, adult Dec- 0-201 5 Michael Ramos. [address] [place], [place], [id number], [place]. tel:[phone] Referring Provider: Rachel Fernandez, [address] [place], [address]. tel:[phone] Family History Family Member Type Diagnosis Age At Onset No Information Payers Payer name Insurance type Covered republican ID Authoriza tion(s) No Information Social History [...] Mental Status Date Cognitive Assessment Orientation - Carson ed to time, place, person, situation. Patient Care Teams Name Effective Dates (start - stop) Status Members No Information
== END 2024-03-19 09:31 | disposition home or self-care (01) ==
PROVIDERS: Visit Provider Internal Medicine
DX: M72.2 Plantar fascial fibromatosis (principal); E04.9 Nontoxic goiter, unspecified

== ENCOUNTER → 2024-03-19 09:01 | Outpatient (BNVA) | payer OTHER, SELFPAY | PROVIDERS: Visit Provider Internal Medicine | DX: M72.2 Plantar fascial fibromatosis (principal); E04.2 Nontoxic multinodular goiter | CPT/HCPCS: 96127; 99212 ==

== ENCOUNTER 2024-04-01 08:43 | Outpatient (REF) | payer OTHER, SELFPAY ==
--- OUTSIDE RECORDS SUMMARY | 2024-04-01 08:46 | XMS_ITS | Continuity of Care Document ---
Author Name [facility] Organization [facility] Care Team Providers Care Attorney Name Role Phone [facility] Unavailable Unavailable Problems Combined list of problems from Department of Defense and Veterans Affairs facilities. It does not include entries that were removed or entered in error. Problem Status Onset Date Problem Type Date of Resolution Comments Source EXAM, FORMAL OCCUPATIONAL HEALTH PROGRAM INCLUDING HEARING CONSERVATION PROGRAM, PERIODIC FOR CONTINUED SURVEILLANCE FOR OCCUPATIONAL WORKPLACE EXPOSURE Active 4 Diagnosis [id number] MEDGRP-SJ ASSESSMENT, POST-DEPLOYMENT, DOCUMENTED ON [id number] Inactive 2 Condition [facility] No Known Problems Active Condition [facility] Chronic rhinitis Active Condition [facility] Gastro-esophageal reflux disease without esophagitis Active Condition [facility] Other injury of other muscle(s) and tendon(s) at lower leg level, right leg Active Condition DoD Medications Combined list of outpatient medications from Department of Defense and Veterans Affairs facilities.Medications provided include 1) outpatient medications from the last 15 months, and 2) patient-reported medications. Medication Details Route Status Patient Instructions Prescription Expires Prescription Number Last Dispense Date Ordering Provider Order Date Order Qty Source fluoride 1.1% topical paste See Instruct ions, Apply 1 thin ribbon to toothbru sh. Natalia thorough ly at bedtime as directed by provider . do not rinse, eat or drink for 30 minutes. , # 51 g, 3 total refill(s ), Maintena nce, Apply 1 thin ribbon to toothbru sh. Natalia thorough ly at bedtime as directed by provider . do not rinse, eat or drink for 30 minutes. , Pharmacy : [facility] Ordered 51.0 0310C-A F-C-66t h [facility] omeprazole 20 mg oral delayed release tablet 1 tab(s), Oral, BID, before a meal, # 42 tab(s), 0 total refill(s ), Maintena nce Oral (given by mouth) Ordered 42.0 0090C-A F-C-4Th MEDGRP- SJ Sodium Fluoride (PreviDent 5000 Booster Eq.) Paste 1.1% Dental Take or use exactly as directed . Active 08/17/2024 [id number] 4 2023 51 [facility] Allergies, Adverse Reactions, Alerts Combined list of allergies from Department of Defense and Veterans Affairs facilities. It does not include entries that were removed or entered in error. Substance Category Reaction Severity Reaction type Status Date Reported Comments Source No Known Allergies Drug allergy (disorder) active 12/20/2017 [facility] Immunizations Combined list of available immunizations from the Department of Defense and Veterans Affairs facilities. Immunization Series Date Given Administered By Site Reaction Lot Number CVX Code Drug Watch Guard Gate Status Comments Source influenza virus vaccine, inactivated 2021 [id number] N Shoul warren, left (delt oid) [id number] 150 ID Barnana April complet ed influenza virus vaccine, inactivat ed 03/29/22 Given 0090C-A F-C-4Th MED[facility]- SJ anthrax vaccine 1 2021 [id number] [employer]gent [employer] [place] (MIP) complet ed anthrax vaccine DoD influenza, injectable, quadrivalent- pf 2020 [id number] 150 GlaxoSmithKli ne complet ed influenza , injectabl e, quadrival ent-pf 01/29/21 Given Ambulat ory Pharmac y Influenza, injectable, quadrivalent, preservative free 1 2020 [id number] 150 Smithine (SKB) complet ed Influenza , injectabl e, quadrival ent, preservat lata free DoD typhoid Vi capsular polysaccharid e vac 2020 [id number] sanofi pasteur complet ed typhoid Vi capsular polysacch aride vac 12/04/20 Given Ambulat ory Pharmac y typhoid Vi capsular polysaccharid e vaccine 1 2020 [id number] 101 Sanofi Pasteur (PMC) complet ed typhoid Vi capsular polysacch aride vaccine DoD COVID Vaccine Pfizer 2020 Srikanth boogie Arm [id number] 208 PFIZER complet ed COVID Vaccine Pfizer 11/13/20 Given Ambulat ory Pharmac y SARS-COV-2 (COVID-19) vaccine, mRNA, spike protein, LNP, preservative free, 30 mcg/0.3mL dose 2 2020 CHANO CASTORENA [place] [id number] Pfizer, Inc (PFR) complet ed SARS-COV- 2 (COVID-19 ) vaccine, mRNA, spike protein, LNP, preservat lata free, 30 mcg/0.3mL dose DoD COVID Vaccine Pfizer 2020 Srikanth boogie Arm [id number] 208 PFIZER complet ed COVID Vaccine Pfizer 10/23/20 Given Ambulat ory Pharmac y SARS-COV-2 (COVID-19) vaccine, mRNA, spike protein, LNP, preservative free, 30 mcg/0.3mL dose 1 2020 TERRANCE JULIAN [id number] 208 Pfizer, Inc (PFR) complet ed SARS-COV- 2 (COVID-19 ) vaccine, mRNA, spike protein, LNP, preservat lata free, 30 mcg/0.3mL dose DoD Human Papillomaviru s 9-valent vaccine 2019 [id number] 165 Merck & Company Inc complet ed Human Papilloma virus 9-valent vaccine 01/16/20 Given Ambulat ory Pharmac y influenza, injectable, quadrivalent 2019 [id number] 158 Seqirus complet ed influenza , injectabl e, quadrival ent 01/16/20 Given Ambulat ory Pharmac y influenza, injectable, quadrivalent, contains preservative 1 2019 [id number] 696 158 Seqirus (SEQ) complet ed influenza , injectabl e, quadrival ent, contains preservat lata DoD Human Papillomaviru s 9-valent vaccine 3 2019 [id number] 165 Merck (MSD) complet ed Human Papilloma virus 9-valent vaccine DoD Human Papillomaviru s 9-valent vaccine 2018 [id number] 165 Merck & Company Inc complet ed Human Papilloma virus 9-valent vaccine 04/08/19 Given Ambulat ory Pharmac y Human Papillomaviru s 9-valent vaccine 2 2018 [id number] 165 Merck (MSD) complet ed Human Papilloma virus 9-valent vaccine DoD influenza, injectable, quadrivalent- pf 2018 [id number] 150 Seqirus complet ed influenza , injectabl e, quadrival ent-pf 03/21/19 Given Ambulat ory Pharmac y Influenza, injectable, quadrivalent, preservative free 1 2018 [id number] 346 150 Seqirus (SEQ) complet ed Influenza , injectabl e, quadrival ent, preservat lata free DoD Human Papillomaviru s 9-valent vaccine 2018 [id number] 165 Merck & Company Inc complet ed Human Papilloma virus 9-valent vaccine 02/06/19 Given Ambulat ory Pharmac y Human Papillomaviru s 9-valent vaccine 1 2018 [id number] 165 Merck (MSD) complet ed Human Papilloma virus 9-valent vaccine DoD hepatitis A adult vaccine 2018 [id number] 52 GlaxoSmithKli ne complet ed hepatitis A adult vaccine 05/15/18 Given Ambulat ory Pharmac y hepatitis A vaccine, adult dosage 2 2018 [id number] 52 SmithKline (SKB) complet ed hepatitis A vaccine, adult dosage DoD influenza, injectable, quadrivalent- pf 2017 [id number] 150 GlaxoSmithKli ne complet ed influenza , injectabl e, quadrival ent-pf 02/21/18 Given Ambulat ory Pharmac y Influenza, injectable, quadrivalent, preservative free 0 2017 [id number] 150 SmithKline (SKB) complet ed Influenza , injectabl e, quadrival ent, preservat lata free DoD varicella virus vaccine 2017 [id number] 21 Merck & Company Inc complet ed varicella virus vaccine 12/04/17 Given Ambulat ory Pharmac y measles/mumps /rubella virus vaccine 2017 [id number] 03 Merck & Company Inc complet ed measles/m umps/rube lla virus vaccine 12/04/17 Given Ambulat ory Pharmac y measles, mumps and rubella virus vaccine 2 2017 [id number] 03 Merck (MSD) complet ed measles, mumps and rubella virus vaccine DoD varicella virus vaccine 1 2017 [id number] 21 Merck (MSD) complet ed varicella virus vaccine DoD measles/mumps /rubella virus vaccine 2017 [id number] 03 Merck & Company Inc complet ed measles/m umps/rube lla virus vaccine 10/25/17 Given Ambulat ory Pharmac y hepatitis A adult vaccine 2017 [id number] 52 GlaxoSmithKli ne complet ed hepatitis A adult vaccine 10/25/17 Given Ambulat ory Pharmac y varicella virus vaccine 2017 [id number] 21 Merck & Company Inc complet ed varicella virus vaccine 10/25/17 Given Ambulat ory Pharmac y measles, mumps and rubella virus vaccine 1 2017 [id number] 03 Merck (MSD) complet ed measles, mumps and rubella virus vaccine DoD varicella virus vaccine 1 2017 [id number] 21 Merck (MSD) complet ed varicella virus vaccine DoD hepatitis A vaccine, adult dosage 1 2017 [id number] 52 FabAlleyine (SKB) complet ed hepatitis A vaccine, adult dosage DoD adenovirus vaccine, live 2017 [id number] 2 143 Teva Pharmaceutica complet ed adenoviru s vaccine, live 10/19/17 Given Ambulat ory Pharmac y tetanus, diphtheria, acellular pertu is 2017 [id number] 115 [facility] complet ed tetanus, diphtheri a, acellular pertussis 10/19/17 Given Ambulat ory Pharmac y meningococcal A,C,Y,W-135 (MCV4P) 2017 [id number] 114 sanofi pasteur complet ed meningoco ccal [...] diphtheria toxoid conjugate vaccine (MCV4P) 1 2017 [id number] 114 Sanofi Pasteur (PMC) complet ed meningoco ccal polysacch aride (groups A, C, Y and W-135) diphtheri a toxoid conjugate vaccine (MCV4P) DoD tetanus toxoid, reduced diphtheria toxoid, and acellular pertu is vaccine, adsorbed 1 2017 [id number] 115 FabAlleyine (SKB) complet ed tetanus toxoid, reduced diphtheri a toxoid, and acellular pertussis vaccine, adsorbed DoD Adenovirus, type 4 and type 7, live, oral 1 2017 [id number] 2 143 [facility] (BRR) complet ed [...] Prevention' s HIV diagnostic algorithm. Refer to [facility] Lab Guide for additional information : [email or web address]/ [email or web address] [email or web address] x Testing [...] Prevention' s HIV diagnostic algorithm. Refer to [facility] Lab Guide for additional information : [email or web address]/ kj/[email or web address]/EPIL [email or web address] [email or web address] x Testing performed by Alannah powell. Performed by: [facility] [employer] [facility] [address] [place] [phone] Amb[facility] y Pharmacy Ericacella melissa Sendouts Repository Sample.EPI RECEIVED 01/28 Result Comment: INTERPRETAT ION(S): Performed by: [facility] [employer] [facility] [address] [place] [phone] [facility] Pharmacy Vital Signs Combined list [...] ADM Date DC Date Status Disposition Source [place] [address](Hea ring Conservat ion, BMT) OUTPATIENT [id number] GALILEA RODRIGUEZ 10/26 Released w/o Limitations [facility] [place] [address](H earing Conserv ation, BMT) [place] [address]([facility]) OUTPATIENT [id number] Notes Entered by: ROSS CAVANAUGH 30 Oct 2017 0728 ------- ------- ------- ------- -- Strep Prophyl axis LANI CAVANAUGH 10/30 Released w/o Limitations [facility] [place] [address](Critical access hospital d) [place] [address](LISA Alpha) OUTPATIENT [id number] Notes Entered by: KYAW EAST 03 Nov 2017 1020 ------- ------- ------- ------- -- allergy symptom s SANTY LAGUNA 11/03 Released w/o Limitations [facility] [place] [address](M Alpha) [place] OUTPATIENT [id number] LT THIRD TOE IGT MARIA FERNANDA DEWITT 01/23 Released w/o Limitations [place] [place] OUTPATIENT [id number] Notes Entered by: NACHO PEÑA 07 Feb 2018 0544 ------- ------- ------- ------- -- RT KNEE IZABELA ZUÑIGAARPIT 02/07 Released with Work/Duty Limitations [place]) [place] Occupatio nal Health) OUTPATIENT [id number] [facility] ROSI AGUILA 02/12 Released w/o Limitations [place] Occupat ional Health) [place] OUTPATIENT [id number] ATC #[id number] RT KNEE VALERIE ALATORRE 02/26 Released with Work/Duty Limitations [place] OUTPATIENT [id number] atc- R KNEE F/U # VALERIE ALATORRE 03/05 Released w/o Limitations [place]) [place] Hearing Conservat ion) OUTPATIENT [id number] EDUCATI ON & EGMMA DURAND 03/12 Released w/o Limitations [place] Hearing Conserv ation) [place]) OUTPATIENT [id number] RT KNEE PN IVÁN CRUZ 03/19 Released w/o Limitations [place]) [employer]([facility]R S IMR Clinic) OUTPATIENT [id number] [facility] [address] JOEL HOLMAN 05/30 Released w/o Limitations [employer](O [facility] IMR Clinic) [employer](HCO S Primary Care) TELE CONSULT [id number] Notes Entered by: MAYDA BENOIT 29 Jun 2018 0757 ------- ------- ------- ------- -- MAYDA Álvarez 06/29 Immediate Referral [employer](H COS Primary Care) [employer](HCO S Primary Care) TELE CONSULT [id number] Notes Entered by: JEFFERSON RODRIGUEZ 29 Jun 2018 1122 ------- ------- ------- ------- -- Request for s MAYDA BENOIT Santiago 06/29 Sick at Home/Quarter s [employer](H COS Primary Care) [employer](HCO S Primary Care) OUTPATIENT [id number] [place] splints ALAYNA MURILLO 07/09 Released w/o Limitations [employer](H COS Primary Care) [employer](HCO S Primary Care) OUTPATIENT [id number] allergi es ALAYNA MURILLO 07/30 Released w/o Limitations [employer](H COS Primary Care) [employer]([facility] IMR [facility]) OUTPATIENT [id number] A ONLY ([phone]) XENIA SANABRIA 08/09 Released w/o Limitations [employer](O [facility] IMR Clinic) [employer]([facility]) OUTPATIENT [id number] Notes Entered by: GILBERTO CHASE 15 Aug 2018 1032 ------- ------- ------- ------- -- RECORD REVIEW FATMATA DUMONT 08/15 Released w/o Limitations [employer](O [facility] IMR Clinic) [employer](HCO S Primary Care) OUTPATIENT [id number] PHA RECORD CLOSURE ALAYNA MURILLO 08/15 Released w/o Limitations [employer](H COS Primary Care) [employer](OMR S Primary Care_1) TELE CONSULT [id number] Notes Entered by: YUMIKO LOCKHART SE 25 Sep 2018 1009 ------- ------- ------- ------- -- pt seen at the er and needs s MAYDA BENOIT Santiago 09/25 Other Not Elsewhere Classified [employer](O MRS Primary Care_1) [employer](HCO S Primary Care) TELE CONSULT [id number] Notes Entered by: Laina PRAJAPATI 24 Oct 2018 0859 ------- ------- ------- ------- -- Network Results UC Back Pain 3.22.20 19 LIDIAALAYNA Crow 10/24 [facility] Primary Care) [facility] Primary Care) TELE CONSULT [id number] Notes Entered by: CÉSAR HENSON 06 Nov 2018 1125 ------- ------- ------- ------- -- Qtr/ Con leave for wisdom teeth being removed . [id number] MAYDA BENOIT 11/06 Other Not Elsewhere Classified [facility] Primary Care) [facility] Primary Care) OUTPATIENT [id number] rt leg pain LIDIAALAYNA Crow 11/19 Released w/o Limitations [facility] Primary Care) [facility] S Physical Therapy) OUTPATIENT [id number] Pain in unspeci fied lower leg KENN CAMPOS 12/03 Released w/o Limitations [facility](O MRS Physica l Therapy ) [facility] Primary Care) OUTPATIENT [id number] Rt leg pain X3days. XENIA SELBY 05/14 Released w/o Limitations [facility] Primary Care) [facility](Richi Muñoz) OUTPATIENT [id number] Audiogr am IAN VALENTINO O 05/16 Released w/o Limitations [employer](S jenn Muñoz ) [facility] Primary Care) OUTPATIENT [id number] leg cramp on last lap of PT test - stopped LIDIAALAYNA Crow 05/23 Released w/o Limitations [facility] Primary Care) [facility](R S IMR Clinic) OUTPATIENT [id number] [place] [id number] FATMATA CORRIGAN 05/30 Released w/o Limitations [employer](O MRS IMR Clinic) [facility](O Primary Care) OUTPATIENT [id number] cough,s ore throat, running nose [id number] /not getting better. XENIA SELBY 06/16 Released w/o Limitations [employer](H COS Primary Care) [employer](OMR S Physical Therapy) OUTPATIENT [id number] Pain in left leg KENN CAMPOS 07/01 Released w/o Limitations [employer](O MRS Physica l Therapy ) [employer](OMR S Primary Care_1) TELE CONSULT [id number] Notes Entered by: Rebecca GOODE 07 Aug 2019 1445 ------- ------- ------- ------- -- PRIORIT Y PHA NEGRAFFENR JESUS PINA S 08/06 Advice Assessment [employer](O MRS Primary Care_1) [employer](HCO S Primary Care) OUTPATIENT [id number] PHA RECORD CLOSURE ALAYNA MURILLO 10/02 Released w/o Limitations [employer](H COS Primary Care) [employer](OMR S Flight Med) OUTPATIENT [id number] Notes Entered by: LOY HANCOCK 13 Dec 2019 1018 ------- ------- ------- ------- -- cough x 4days JOSE CURTIS 12/12 Sick at Home/Quarter s [employer](O MRS Flight Med) [employer]([facility] IMR Clinic) OUTPATIENT [id number] DRCIERRA 1 SPENCER HONEYCUTT 02/24 Released w/o Limitations [employer](O MRS IMR Clinic) [employer](Richi Muñoz) OUTPATIENT [id number] AUDIOGR AM TERRANCE JULIAN 05/26 Released w/o Limitations [employer](S jenn Muñoz ) [employer](OMR S Flight Med) OUTPATIENT [id number] JOEL HOLMAN 05/27 Released w/o Limitations [employer](O MRS Flight Med) [employer]([facility]) OUTPATIENT [id number] Notes Entered by: BALWINDER CAIN 07 Aug 2020 0838 ------- ------- ------- ------- -- VDC IVA VÁZQUEZ 08/07 Released w/o Limitations [employer](V irus Detecti on Center) [employer](Vir us Detection Center) OUTPATIENT [id number] Notes Entered by: KIMBERLY DONNELLY 10 Aug 2020 0906 ------- ------- ------- ------- -- vd ZIA GALLARDO 08/10 Sick at Home/Quarter s [employer](V irus Detecti on Center) [employer](HCO S Primary Care) TELE CONSULT [id number] Notes Entered by: OLIVIA GALLARDO 11 Aug 2020 0734 ------- ------- ------- ------- -- Negativ e COVID test ANNE-MARIE MAY 08/11 Released to Self Care [employer](H COS Primary Care) [employer]([facility] S IMR Clinic) OUTPATIENT [id number] MHA/PHA ) SPENCER HONEYCUTT 11/10 Released w/o Limitations [employer](O MRS IMR Clinic) [employer]([facility] S IMR Clinic) TELE CONSULT [id number] Notes Entered by: Ollie PAGAN 30 Nov 2020 0947 ------- ------- ------- ------- -- [facility] STATUS FRANCISCO PAGAN 11/30 Released to Self Care [employer](O MRS IMR Clinic) [employer](OMR S Primary Care_1) OUTPATIENT [id number] Notes Entered by: Crow SIMON 04 Dec 2020 1502 ------- ------- ------- ------- -- SAYRA Molina 12/04 Released w/o Limitations [employer](O MRS Primary Care_1) [employer]([facility] us Detection Center) OUTPATIENT [id number] Notes Entered by: YENNI SPAULDING 23 Apr 2021 0957 ------- ------- ------- ------- -- VDC AVANI BENNETT 04/23 Sick at Home/Quarter s [employer] [facility](V irus Detecti on Center) [employer](HCO S Primary Care) TELE CONSULT [id number] Notes Entered by: MARK SANTIAGO 23 Apr 2021 1112 ------- ------- ------- ------- -- COVID AVANI BENNETT 04/23 [employer] [facility](H COS Primary Care) [employer](OMR S Flight Med) TELE CONSULT [id number] Notes Entered by: Ollie PAGAN 13 May 2021 1530 ------- ------- ------- ------- -- [facility] REVIEW FRANCISCO PAGAN 05/13 Released to Self Care [employer](O MRS Flight Med) [employer](OMR S Primary Care_1) OUTPATIENT [id number] STEF GRANT 05/28 Released w/o Limitations [employer](O MRS Primary Care_1) [employer]([facility]) OUTPATIENT [id number] AUDIOGR CHANO PERALES 06/07 Released w/o Limitations [employer](P ublic Health) [employer](OMR S Flight Med) OUTPATIENT [id number] [facility] [address] WILLOW BARRIENTOS 06/17 Released w/o Limitations [employer](O MRS Flight Med) [facility] OUTPATIENT [id number] Theater Provider 01/06 Released w/o Limitations [facility] 0090C-AF- [facility] [id number] EXAM, FORMAL OCCUPAT IONAL HEALTH PROGRAM INCLUDI NG HEARING CONSERV ATION PROGRAM , PERIODI C FOR CONTINU ED SURVEIL GRISELDA FOR OCCUPAT IONAL WORKPLA ADAMA SHAIKH 06/01 Discharge Disposition: Home or Self Care 0090C-A F-C-4Th MEDGRP- SJ 0C-AF- C-[facility]th [facility] [id number] TRAN AMAYA 07/26 Discharge Disposition: Home or Self Care 0310C-A F-C-66t h [facility] 0C-AF- C-66th [facility] [id number] GAIL BORJA 08/17 Discharge Disposition: Home or Self Care 0310C-A F-C-66t h [facility] [id number] AMDS Outpatient [id number] ADENIKE DUTTA 09/08 Discharge Disposition: Home or Self Care [id number] AMDS 309C-AF- C-th [facility] Between Visit [id number] 03/20 Discharge Disposition: Home or Self Care 0310C-A F-C-66t h [facility] Procedures Combined list of: 1) Procedures from Department of Veterans Affairs facilities going back up to thelast 18 months, not all VA non-surgical procedures are included; 2) All procedures from the Department of Defense facilities. Procedure Procedure Type Code Date Perfomer Comments Sourc e No data available for this section Ambulato ry Pharmacy PHYS/OTH QUALIFIED HEALTH BEAVER TRAPPER QUALIFIED,EDUCATION, TRAIN,LICENSURE/REGU LATION (WHEN APPLICABLE) EDUC SER RENDERED TO PATS IN A GRP SETTING (EG,,OBESITY ,OR DIABETIC INSTRUCT) 2017 DoD THERAPEUTIC PROCEDURE,1 OR MORE AREAS,EACH 15 MINUTES;NEUROMUSCULA R REEDUCATION OF MOVEMENT,BALANCE,DIESEL INSTRUCTOR RDINATION,KINESTHETI C SENSE,POSTURE,AND/OR PROPRIOCEPTION FOR SITTING AND/OR STANDING ACTIVITIES 2017 DoD THERAPEUTIC PROCEDURE,1 OR MORE AREAS,EACH 15 MINUTES;NEUROMUSCULA R REEDUCATION OF MOVEMENT,BALANCE,DIESEL INSTRUCTOR RDINATION,KINESTHETI C SENSE,POSTURE,AND/OR PROPRIOCEPTION FOR SITTING AND/OR STANDING ACTIVITIES 2017 DoD PURE TONE AUDIOMETRY (THRESHOLD), AUTOMATED; AIR ONLY 2021 [facility] PSYCHOLOGICAL OR NEUROPSYCHOLOGICAL TEST ADMINISTRATION, WITH SINGLE AUTOMATED, STANDARDIZED INSTRUMENT VIA ELECTRONIC PLATFORM, WITH AUTOMATED RESULT ONLY 2020 DoD ADMINISTRATION OF PATIENT-FOCUSED HEALTH RISK [...] MANIPULATIVE THERAPY PERFORMED FOR MAINTENANCE RATHER THAN ISLAM 2019 DoD PHYSICAL THERAPY EVALUATION:LOW COMPLEXITY,REQ:HIST W NO PERS FACT &/COMORB THAT IMPACT PLAN OF CARE;CLIN DECIS MAKING OF LOW COMPLEXITY,TYPICALLY ,20 MIN ARE SPENT NUXS-DN-LYSM W THE PATIENT &/FAMILY 2018 DoD TELE [...] W/IN THE PREV 7 DAYS,USE THE INTERNET/SIMILAR [employer] COMM NETWORK 2018 DoD TELE ASSESS & MGT SRV PROV QUAL NONPHYS HLTH CARE PRO TO EST PAT,PARENT,GUARD NOT ORIG REL ASSESS & MGT SRV PROV W/IN PREV 7 DAYS NOR LEAD ASSESS & MGT SRV/PX W/IN NXT 24H/SOON APT; 11-20 MIN MED DIS 2018 [facility] THERAPEUTIC, PROPHYLACTIC, OR DIAGNOSTIC INJECTION (SPECIFY SUBSTANCE OR DRUG); SUBCUTANEOUS OR INTRAMUSCULAR 2017 [facility] PURE TONE AUDIOMETRY (THRESHOLD); AIR ONLY 2017 [facility] Non-Physician Phone Call To Patient/Provider Brief (5-10min) Non-Physician Phone Call To Patient/Provider Brief (5-10min) [id number] MAYDA BENOIT [facility] Non-Physician Phone Call To Patient/Provider Brief (5-10min) Non-Physician Phone Call To Patient/Provider Brief (5-10min) [phone] MAYDA BENOIT [facility] Preventive Medicine Administration Of Health Risk Questionnaire Patient-Focused Preventive Medicine Administration Of Health Risk Questionnaire Patient-Focused [id number] 2018 ALAYNA MURILLO [facility] Internet Med Svc Qual Nonphys Healthcare Prof Up To 7 Days Estab Patient Internet Med Svc Qual Nonps Healthcare Prof Up To 7 Days Estab Patient [id number] 2018 XENIA SELBY [facility] Preventive Medicine Administration Of Health Risk Questionnaire Patient-Focused Preventive Medicine Administration Of Health Risk Questionnaire Patient-Focused [id number] 2018 XENIA SELBY [facility] Non-Physician Phone Call To Pt/Provider Intermed (11-20 min) Non-Physician Phone Call To Pt/Provider Intermed (11-20 min) [id number] 2018 MAYDA BENOIT [facility] Physician Supervised Group Educational Services Physician Supervised Group Educational Services [id number] 2017 GEMMA CHEEMA [facility] Physician Supervised Services Provision Of Educational Supplies Physician Supervised Services Provision Of Educational Supplies [id number] 2017 GEMMA CHEEMA [facility] Athletic Training Evaluation Low Complexity Athletic Training Evaluation Low Complexity 46921 2017 VALERIE ALATORRE [facility] Physical Therapy Neuromuscular Re-education Physical Therapy Neuromuscular Re-education 94244 2017 VALERIE ALATORRE 15 min exercise to [...] Low Complexity Athletic Training Evaluation Low Complexity [id number] 2017 VALERIE ALATORRE [facility] Physical Therapy Neuromuscular Re-education Physical Therapy Neuromuscular Re-education [id number] 2017 VALERIE ALATORRE 15 min exercise to develop balance, coordination, kinesthetic sense, posture, core stability, efficiency of muscle contraction, motor recruitment patterns quadriceps, hamstring, gastroc, soleus stretch quad sets SLR ABD, FLEX with quad sets clamshells non impact cardio; bike or elliptical as able - stop for pain bug DoD Physician Supervised Injection Intramuscular Antibiotic Physician Supervised Injection Intramuscular Antibiotic [id number] 2017 LANI CAVANAUGH [facility] Threshold Audiogram (Pure Tone) Threshold Audiogram (Pure Tone) 32535 2017 GALILEA RODRIGUEZ [facility] Physical or manipulative therapy performed for maintenance rather than hindu KENN CAMPOS [facility] Taping Ankle Taping Ankle [id number] JOSE MANUEL CAMPOS [facility] Physical Therapy Service Evaluation Low Complexity Physical Therapy Service Evaluation Low Complexity [id number] KENN CAMPOS [facility] Non-Physician Phone Call To Patient/Provider Brief (5-10min) Non-Physician Phone Call To Patient/Provider Brief (5-10min) [id number] JB PLAZA [facility] Waiver services; not otherwise specified (NOS) JB PLAZA [facility] Preventive Medicine Administration Of Health Risk Questionnaire Patient-Focused Preventive Medicine Administration Of Health Risk Questionnaire Patient-Focused [id number] ALAYNA MURILLO [facility] Psychometric Neuropsych Testing Battery Admin By Computer Psychometric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
--- OUTSIDE RECORDS SUMMARY | 2024-04-01 08:46 | XMS_ITS | Continuity of Care Document ---
Author Organization [facility] Address [address] [place] [address] Phone Care Team Providers Care Digital Imaging Specialist Name Role Phone Rachel Hill Unavailable Unavailable [...] Date URINALYSIS NONAUTO W/O SCOPE OFFICE/OUTPATIENT VISIT [facility] Advance Directives Directive Yes / No Effective Date File Name No Information Encounters Encounter Description Practice Location Reason(s) For Visit Diagnoses Date Provider Providers Copied on Encounter OFFICE/OUTPAT IENT VISIT [facility], [address] [place], [place], [id number], tel:[phone] [facility] dysuria (chief complaint) Infection, urinary tract NOSBody Mass Index between 19-24, adult Dec- 0-201 5 Michael Ramos. [address] [place], [place], [id number], [place]. tel:[phone] Referring Provider: Rachel Fernandez, [address] [place], [address]. tel:[phone] Family History Family Member Type Diagnosis Age At Onset No Information Payers Payer name Insurance type Covered libertarian ID Authoriza tion(s) No Information Social History [...] Mental Status Date Cognitive Assessment Orientation - [place] ed to time, place, person, situation. Patient Care Teams Name Effective Dates (start - stop) Status Members No Information
== END 2024-04-01 08:44 | disposition home or self-care (01) ==
LOC: HO.HMGCX 08:43
PROVIDERS: PCP Internal Medicine; Visit Provider Internal Medicine
DX: E04.9 Nontoxic goiter, unspecified (principal)
CPT/HCPCS: 76536

== ENCOUNTER → 2024-04-01 08:45 | Outpatient (BNV) | payer OTHER, SELFPAY | PROVIDERS: PCP Internal Medicine; Visit Provider Radiology Diagnostic Radiology | DX: E04.9 Nontoxic goiter, unspecified (principal) | CPT/HCPCS: 76536 ==

== ENCOUNTER 2024-06-14 11:01 | Outpatient (AMB) | payer OTHER, SELFPAY ==
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
[2024-06-14 11:13] VITALS: BP 136/82; PULSE 76; RESP 14; O2SAT 96
--- OUTSIDE RECORDS SUMMARY | 2024-06-14 12:44 | XMS_ITS | Continuity of Care Document ---
Author Name [facility] Organization [facility] Care Team Providers Care Public Health Professor Name Role Phone [facility] Unavailable Unavailable Problems Combined list of problems from Department of Defense and Veterans Affairs facilities. It does not include entries that were removed or entered in error. Problem Status Onset Date Problem Type Date of Resolution Comments Source Stress at work Active 06/14/2024 Diagnosis 309 C-AF-C-6 6th [facility] [employer] ASSESSMENT, POST-DEPLOYMENT, DOCUMENTED ON [id number] Inactive 01/06/2022 Condition [facility] Chronic rhinitis Active Condition DoD Gastro-esophageal reflux disease without esophagitis Active Condition DoD Other injury of other muscle(s) and tendon(s) at lower leg level, right leg Active Condition DoD No Known Problems Active Condition 309 Panna-AF-C-6 6th [facility] Pay[employer] Medications Combined list of outpatient medications from Department of Defense and Veterans Affairs facilities.Medications provided include 1) outpatient medications from the last 15 months, and 2) patient-reported medications. Medication Details Route Status Patient Instructions Prescription Expires Prescription Number Last Dispense Date Ordering Provider Order Date Order Qty Source fluoride 1.1% topical paste See Instruct ions, Apply 1 thin ribbon to toothbru sh. [place] thorough ly at bedtime as directed by provider . do not rinse, eat or drink for 30 minutes. , # 51 g, 3 total refill(s ), Maintena angelique, Pharmacy : [facility] Ordered 4 2023 51.0 0310C-A F-C-66t h [facility] 20 mg oral delayed release tablet 1 tab(s), Oral, BID, before a meal, # 42 tab(s), 0 total refill(s ), Maintena nce Oral (given by mouth) Ordered 2022 42.0 0090C-A F-C-4Th [facility]- Sodium Fluoride (PreviDent 5000 Booster Eq.) Paste 1.1% Dental Take or use exactly as directed . Active 08/17/2024 [id number] 4 2023 51 [facility] Allergies, Adverse Reactions, Alerts Combined list of allergies from Department of Defense and Veterans Affairs facilities. It does not include entries that were removed or entered in error. Substance Category Reaction Severity Reaction type Status Date Reported Comments Source No Known Allergies Drug allergy (disorder) active 12/20/2017 [facility] Immunizations Combined list of available immunizations from the Department of Defense and Veterans Affairs facilities. Immunization Series Date Given Administered By Site Reaction Lot Number CVX Code Drug Ui Lead Developer Status Comments Source influenza virus vaccine, inactivated 2021 [id number] N Shoul warren, left (delt oid) [id number] 150 ID [employer] April complet ed influenza virus vaccine, inactivat ed 03/29/22 Given 0090C-A F-C-4Th MEDGRP- SJ anthrax vaccine 1 2021 [id number] Emergent BioDefense [facility] (MIP) complet ed anthrax vaccine DoD influenza, injectable, quadrivalent- pf 2020 [id number] 150 GlaxoSmithKli ne complet ed influenza , injectabl e, quadrival ent-pf 01/29/21 Given Ambulat ory Pharmac y Influenza, injectable, quadrivalent, preservative free 1 2020 [id number] 150 SmithKline (SKB) complet ed Influenza , injectabl e, quadrival ent, preservat lata free DoD typhoid Vi capsular polysaccharid e vac 2020 [id number] sanofi pasteur complet ed typhoid Vi capsular polysacch aride vac 12/04/20 Given Ambulat ory Pharmac y typhoid Vi capsular polysaccharid e vaccine 1 2020 [id number] 101 Sanofi Pasteur (PMC) complet ed typhoid Vi capsular polysacch aride vaccine DoD COVID Vaccine Pfizer 2020 Srikanth boogie Arm [id number] 208 PFIZER complet ed COVID Vaccine Pfizer 11/13/20 Given Ambulat ory Pharmac y SARS-COV-2 (COVID-19) vaccine, mRNA, spike protein, LNP, preservative free, 30 mcg/0.3mL dose 2 2020 CHANO CASTORENA [id number] 208 Porphyrio, Inc (PFR) complet ed SARS-COV- 2 (COVID-19 ) vaccine, mRNA, spike protein, LNP, preservat lata free, 30 mcg/0.3mL dose DoD COVID Vaccine Pfizer 2020 sarahSeema boogie Price [id number] 208 PFIZER complet ed COVID Vaccine Pfizer 10/23/20 Given Ambulat ory Pharmac y SARS-COV-2 (COVID-19) vaccine, mRNA, spike protein, LNP, preservative free, 30 mcg/0.3mL dose 1 2020 TERRANCE BURNS Santiago [id number] 208 Pfizer, Inc (PFR) complet ed SARS-COV- 2 (COVID-19 ) vaccine, mRNA, spike protein, LNP, preservat lata free, 30 mcg/0.3mL dose DoD Human Papillomaviru s 9-valent vaccine 2019 [id number] 165 Merck & Company Inc complet ed Human Papilloma virus 9-valent vaccine 01/16/20 Given Ambulat ory Pharmac y influenza, injectable, quadrivalent 2019 [id number] 158 Seqirus complet ed influenza , injectabl e, quadrival ent 01/16/20 Given Ambulat ory Pharmac y influenza, injectable, quadrivalent, contains preservative 1 2019 [id number] 158 Seqirus (SEQ) complet ed influenza , injectabl e, quadrival ent, contains preservat lata DoD Human Papillomaviru s 9-valent vaccine 3 2019 [id number] 165 Merck (MSD) complet ed Human Papilloma virus 9-valent vaccine DoD Human Papillomaviru s 9-valent vaccine 2018 [id number] 165 Merck & Company Inc complet ed Human Papilloma virus 9-valent vaccine 04/08/19 Given Ambulat ory Pharmac y Human Papillomaviru s 9-valent vaccine 2 2018 [id number] 165 Merck (MSD) complet ed Human Papilloma virus 9-valent vaccine DoD influenza, injectable, quadrivalent- pf 2018 [id number] 150 Seqirus complet ed influenza , injectabl e, quadrival ent-pf 03/21/19 Given Ambulat ory Pharmac y Influenza, injectable, quadrivalent, preservative free 1 2018 [id number] 346 150 Seqirus (SEQ) complet ed Influenza , injectabl e, quadrival ent, preservat lata free DoD Human Papillomaviru s 9-valent vaccine 2018 [id number] 165 Merck & Company Inc complet ed Human Papilloma virus 9-valent vaccine 02/06/19 Given Ambulat ory Pharmac y Human Papillomaviru s 9-valent vaccine 1 2018 [id number] 165 Merck (MSD) complet ed Human Papilloma virus 9-valent vaccine DoD hepatitis A adult vaccine 2018 [id number] 52 GlaxoSmithKli ne complet ed hepatitis A adult vaccine 05/15/18 Given Ambulat ory Pharmac y hepatitis A vaccine, adult dosage 2 2018 [id number] 52 SmithKline (SKB) complet ed hepatitis A vaccine, adult dosage DoD influenza, injectable, quadrivalent- pf 2017 [id number] 150 GlaxoSmithKli ne complet ed influenza , injectabl e, quadrival ent-pf 02/21/18 Given Ambulat ory Pharmac y Influenza, injectable, quadrivalent, preservative free 0 2017 [id number] 150 SmithKline (SKB) complet ed Influenza , injectabl e, quadrival ent, preservat lata free DoD varicella virus vaccine 2017 [id number] 21 Merck & Company Inc complet ed varicella virus vaccine 12/04/17 Given Ambulat ory Pharmac y measles/mumps /rubella virus vaccine 2017 [id number] 03 Merck & Company Inc complet ed measles/m umps/rube lla virus vaccine 12/04/17 Given Ambulat ory Pharmac y measles, mumps and rubella virus vaccine 2 2017 [id number] 03 Merck (MSD) complet ed measles, mumps and rubella virus vaccine DoD varicella virus vaccine 1 2017 [id number] 21 Merck (MSD) complet ed varicella virus vaccine DoD measles/mumps /rubella virus vaccine 2017 [id number] 03 Merck & Company Inc complet ed measles/m umps/rube lla virus vaccine 10/25/17 Given Ambulat ory Pharmac y hepatitis A adult vaccine 2017 [id number] 52 GlaxoSmithKli ne complet ed hepatitis A adult vaccine 10/25/17 Given Ambulat ory Pharmac y varicella virus vaccine 2017 [id number] 21 Merck & Company Inc complet ed varicella virus vaccine 10/25/17 Given Ambulat ory Pharmac y measles, mumps and rubella virus vaccine 1 2017 [id number] 03 Merck (MSD) complet ed measles, mumps and rubella virus vaccine DoD varicella virus vaccine 1 2017 [id number] 21 Merck (MSD) complet ed varicella virus vaccine DoD hepatitis A vaccine, adult dosage 1 2017 [id number] 52 9tong.comine (SKB) complet ed hepatitis A vaccine, adult dosage DoD adenovirus vaccine, live 2017 [id number] 2 143 Teva Pharmaceutica complet ed adenoviru s vaccine, live 10/19/17 Given Ambulat ory Pharmac y tetanus, diphtheria, acellular pertu is 2017 [id number] 115 GlaxoSmithKli ok complet ed tetanus, diphtheri a, acellular pertussis 10/19/17 Given Ambulat ory Pharmac y meningococcal A,C,Y,W-135 (MCV4P) 2017 [id number] 114 sanofi pasteur complet ed meningoco ccal [...] diphtheria toxoid conjugate vaccine (MCV4P) 1 2017 [id number] 114 Sanofi Pasteur (PMC) complet ed meningoco ccal polysacch aride (groups A, C, Y and W-135) diphtheri a toxoid conjugate vaccine (MCV4P) DoD tetanus toxoid, reduced diphtheria toxoid, and acellular pertu is vaccine, adsorbed 1 2017 [id number] 115 Atonarp (SKB) complet ed tetanus toxoid, reduced diphtheri a toxoid, and acellular pertussis vaccine, adsorbed DoD Adenovirus, type 4 and type 7, live, oral 1 2017 [id number] 2 143 [facility] (BRR) complet ed [...] Reference Range Date Interpretation Specimen Comments Source Kobi beck Sendouts Repository Sample Received (09/08/23 9:38 AM) 09/07 N 5600A-U SAFSAM EPILAB Infectiou s Disease HIV-1/O/2 Non-Reac tive 3 (09/08/23 9:38 [...] Prevention' s HIV diagnostic algorithm. Refer to [facility] Lab Guide for additional information : [email or web address]x. [employer].[facility]/ kj/[email or web address]/EPIL ab/Pages/la [email or web address]_guide.asp x Testing performed by Alannah powell. 5600A-U SAFSAM EPILAB Infectiou s Disease HIV-1/O/2.E PI NON-REAC TIVE 01/28 Result Comment: INTERPRETAT ION(S): [...] Prevention' s HIV diagnostic algorithm. Refer to [facility] Lab Guide for additional information : [email or web address][email or web address] [email or web address]/ kj/kx5/EPIL ab/Pages/la b_guide.asp x Testing performed by Alannah powell. Performed by: Epidemiolog y Laboratory Service [facility] [address] [place] [address], [place] [address] 0090A-A F-C-4Th MEDGRP- SJ Miscellan eous Sendouts Repository Sample.EPI RECEIVED 01/28 Result Comment: INTERPRETAT ION(S): Performed by: Epidemiolog y Laboratory Service [facility] [address] [place] [phone] 0090A-A F-C-4Th MEDGRP- SJ Vital Signs Combined list of inpatient and outpatient Vital Signs from Department of Defense and Veterans Affairs, ranging from 12 months to all on record, depending upon the facility. Vital Sign Value Date Comments Source BP Site Left arm 07/27/2022 12:37:00 0090C -AF-C-4Th MEDGRP-SJ Blood Pressure Manual Manual 07/27/2022 12:37:00 6696R-KM-F-4Th MEDGRP-SJ Systolic Blood Pressure 122 mm[Hg] 07/27/2022 12:37:00 1247C-JX-N-4Th MEDGRP-SJ Diastolic Blood Pressure 96 mm[Hg] 07/27/2022 12:37:00 3057R-JU-C-4Th MEDGRP-SJ Respiratory Rate 16 br/min 07/27/2022 12:37:00 4161M-LP-Z-4Th MEDGRP-SJ Peripheral Pulse Rate 86 bpm 07/27/2022 12:37:00 0743Z-TU-V-4Th MEDGRP-SJ Mean Arterial Pressure, Calc 105 mm[Hg] 07/27/2022 12:37:00 9370R-VS-V-4 Th MEDGRP-SJ Systolic Blood Pressure 119 mm[Hg] 07/25/2022 18:18:00 1239G-AW-X-4Th MEDGRP-SJ Diastolic Blood Pressure 86 mm[Hg] 07/25/2022 18:18:00 0127E-CQ-H-4Th MEDGRP-SJ Blood Pressure Manual Manual 07/25/2022 18:18:00 6396J-XZ-E-4Th MEDGRP-SJ BP Site Left arm 07/25/2022 18:18:00 0090C -AF-C-4Th MEDGRP-SJ Respiratory Rate 16 br/min 07/25/2022 18:18:00 0405L-HG-F-4Th MEDGRP-SJ Peripheral Pulse Rate 92 bpm 07/25/2022 18:18:00 3354W-HV-M-4Th MEDGRP-SJ Mean Arterial Pressure, Calc 97 mm[Hg] 07/25/2022 18:18:00 2557U-DA-X-4 Th MEDGRP-SJ Respiratory Rate 18 br/min 07/22/2022 18:49:00 2822K-FG-H-4Th MEDGRP-SJ Temperature Tympanic 36.5 Vivian 07/22/2022 18:49:00 9942U-PM-W-4Th MEDGRP-SJ Peripheral Pulse Rate 78 bpm 07/22/2022 18:49:00 2679L-FR-R-4Th MEDGRP-SJ Systolic Blood Pressure 132 mm[Hg] 07/22/2022 18:49:00 9252K-VA-P-4Th MEDGRP-SJ Diastolic Blood Pressure 70 mm[Hg] 07/22/2022 18:49:00 0354S-ZW-Q-4Th MEDGRP-SJ Mean Arterial Pressure, Calc 91 mm[Hg] 07/22/2022 18:49:00 6194P-GR-C-4 Th MEDGRP-SJ BP Site Left arm 07/22/2022 18:49:00 0090C -AF-C-4Th MEDGRP-SJ Blood Pressure Manual Manual 07/22/2022 18:49:00 4598S-BL-C-4Th MEDGRP-SJ Peripheral Pulse Rate 98 bpm 07/13/2022 12:14:00 9600V-DS-V-4Th MEDGRP-SJ Temperature Oral 36.7 Vivian 07/13/2022 12:14:00 8139R-XA-G-4Th MEDGRP-SJ Respiratory Rate 18 br/min 07/13/2022 12:14:00 3916G-HV-P-4Th MEDGRP-SJ Systolic Blood Pressure 134 mm[Hg] 07/13/2022 12:14:00 3048P-LP-J-4Th MEDGRP-SJ Diastolic Blood Pressure 84 mm[Hg] 07/13/2022 12:14:00 4198Q-IU-E-4Th MEDGRP-SJ Mean Arterial Pressure, Calc 101 mm[Hg] 07/13/2022 12:14:00 7246E-XA-E-4 Th MEDGRP-SJ Respiratory Rate 16 br/min 07/26/2022 11:58:00 9977L-QM-A-4Th MEDGRP-SJ BP Site Left arm 07/26/2022 11:58:00 0090C -AF-C-4Th MEDGRP-SJ Blood Pressure Manual Manual 07/26/2022 11:58:00 7915P-ZT-N-4Th MEDGRP-SJ Peripheral Pulse Rate 92 bpm 07/26/2022 11:58:00 8808I-NA-L-4Th MEDGRP-SJ Systolic Blood Pressure 114 mm[Hg] 07/26/2022 11:58:00 1737I-KL-S-4Th MEDGRP-SJ Diastolic Blood Pressure 90 mm[Hg] 07/26/2022 11:58:00 3457P-SZ-U-4Th MEDGRP-SJ Mean Arterial Pressure, Calc 98 mm[Hg] 07/26/2022 11:58:00 4711L-WU-B-4 Th MEDGRP-SJ Encounters Combined list of: 1) Encounters from Department of Veterans Affairs facilities going backup to the last 18 months, not all VA inpatient encounters are included; 2) Encounters from the Department of Defense facilities going backup to 280 months. Location Location Details Encounter Type Encounter Number Reason For Visit Attending Provider ADM Date DC Date Status Disposition Source [facility] [place] [address](Hea ring Conservat ion, BMT) OUTPATIENT [id number] MICHAEL GALILEA N 10/26 Released w/o Limitations [facility] [place] [address](H earing Conserv ation, BMT) [facility] [place] [address]([facility]) OUTPATIENT [id number] Notes Entered by: ROSS CAVANAUGH 30 Oct 2017 0728 ------- ------- ------- ------- -- Strep Prophyl axis LANI CAVANAUGH 10/30 Released w/o Limitations [facility] [place] [address]([facility]) [facility] [place] [address]([facility]) OUTPATIENT [id number] Notes Entered by: KYAW EAST 03 Nov 2017 1020 ------- ------- ------- ------- -- allergy symptom s SANTY LAGUNA 11/03 Released w/o Limitations [facility] [place] [address](M Alpha) [place]) OUTPATIENT [id number] LT THIRD TOE IGT MARIA FERNANDA DEWITT 01/23 Released w/o Limitations [place] [place] OUTPATIENT [id number] Notes Entered by: NACHO PEÑA 07 Feb 2018 0544 ------- ------- ------- ------- -- RT KNEE IZABELA ZUÑIGA 02/07 Released with Work/Duty Limitations [place]) [place] nal [facility]) OUTPATIENT [id number] USAF RPP ROSI AGUILA 02/12 Released [place]/o Limitations [place] Occupat ional Health) [place]) OUTPATIENT [id number] ATC #[id number] RT KNEE VALERIE ALATORRE 02/26 Released with Work/Duty Limitations [place]) [place] OUTPATIENT [id number] atc- R KNEE F/U # VALERIE ALATORRE L 03/05 [place]ased [place]/o Limitations [place]) [place] Hearing Conservat ion) OUTPATIENT [id number] EDUCATI ON and GEMMA DURAND 03/12 [place]ased [place]/o Limitations [place] Hearing Conserv ation) [place]) OUTPATIENT [id number] RT KNEE PN IVÁN CRUZ L 03/19 [place]ased [place]/o Limitations [place]) [facility]) OUTPATIENT [id number] [place] [address] JOEL HOLMAN 05/30 Released w/o Limitations [employer](O [facility] IMR Clinic) [employer](HCO S Primary Care) TELE CONSULT [id number] Notes Entered by: MAYDA BENOIT 29 Jun 2018 0757 ------- ------- ------- ------- -- MAYDA Álvarez 06/29 Immediate Referral [facility] Primary [facility]) [employer](HCO S Primary Care) TELE CONSULT [id number] Notes Entered by: JEFFERSON RODRIGUEZ 29 Jun 2018 1122 ------- ------- ------- ------- -- Request for s MAYDA BENOIT 06/29 Sick at Home/Quarter s [employer](H COS Primary Care) [employer](HCO S Primary Care) OUTPATIENT [id number] callejas splints ALAYNA MURILLO 07/09 Released w/o Limitations [facility](H COS Primary Care) [facility] [facility](HCO S Primary Care) OUTPATIENT [id number] allergi es ALAYNA MURILLO 07/30 Released w/o Limitations [facility](H COS Primary Care) [facility] [employer] [facility]) OUTPATIENT [id number] [facility] ONLY ([phone]) PREFERS OLAMIDE SELBY XENIA 08/09 Released w/o Limitations [facility](O [facility]) [facility]) OUTPATIENT [id number] Notes Entered by: GILBERTO CHASE 15 Aug 2018 1032 ------- ------- ------- ------- -- RECORD REVIEW FATMATA DUMONT 08/15 Released w/o Limitations [facility](O [facility]) [facility] [facility](HCO S Primary Care) OUTPATIENT [id number] PHA RECORD CLOSURE ALAYNA MURILLO 08/15 Released w/o Limitations [facility](H COS Primary Care) [employer](R S Primary Care_1) TELE CONSULT [id number] Notes Entered by: YUMIKO LOCKHART SE 25 Sep 2018 1009 ------- ------- ------- ------- -- pt seen at the er and needs quarter s MAYDA BENOIT 09/25 Other Not Elsewhere Classified [facility](O MRS Primary Care_1) [facility](HCO S Primary Care) TELE CONSULT [id number] Notes Entered by: Laina PRAJAPATI 24 Oct 2018 0859 ------- ------- ------- ------- -- Network Results [facility] Back Pain 3.22.20 19 ALAYNA MURILLO 10/24 [facility](H COS Primary Care) [facility] [facility](HCO S Primary Care) TELE CONSULT [id number] Notes Entered by: CÉSAR HENSON Crow 06 Nov 2018 1125 ------- ------- ------- ------- -- Qtr/ Con leave for wisdom teeth being removed . [id number] MAYDA BENOIT 11/06 Other Not Elsewhere Classified [employer]([facility] Primary Care) [employer]([facility] S Primary Care) OUTPATIENT [id number] rt leg pain ALAYNA MURILLO 11/19 Released w/o Limitations [facility] Primary Care) [facility] S Physical Therapy) OUTPATIENT [id number] Pain in unspeci fied lower leg KENN CAMPOS 12/03 Released w/o Limitations [facility](O MRS Physica l Therapy ) [facility] Primary Care) OUTPATIENT [id number] Rt leg pain X3days. XENIA SELBY 05/14 Released w/o Limitations [facility] Primary Care) [facility](Richi Muñoz) OUTPATIENT [id number] Audiogr am IAN VALENTINO O 05/16 Released w/o Limitations [employer](Ramila Muñoz ) [facility](O S Primary Care) OUTPATIENT [id number] leg cramp on last lap of PT test - stopped ALAYNA MURILLO 05/23 Released w/o Limitations [facility] Primary Care) [employer]([facility] Clinic) OUTPATIENT [id number] [place] [address] FATMATA CORRIGAN 05/30 Released w/o Limitations [facility] [employer] [facility](O [facility] IMR Clinic) [facility](O S Primary Care) OUTPATIENT [id number] cough,s ore throat, running nose N7deala /not getting better. XENIA SELBY 06/16 Released w/o Limitations [facility] Primary Care) [facility](R S Physical Therapy) OUTPATIENT [id number] Pain in left leg CAMPOSKENN 07/01 Released w/o Limitations [facility](O MRS Physica l Therapy ) [facility] S Primary Care_1) TELE CONSULT [id number] Notes Entered by: Rebecca GOODE 07 Aug 2019 1445 ------- ------- ------- ------- -- JESUS VANCE 08/06 Advice Assessment [facility](O MRS Primary Care_1) [facility](HCO S Primary Care) OUTPATIENT [id number] PHA RECORD CLOSURE ALAYNA MURILLO 10/02 Released w/o Limitations [facility] [employer] [facility](H COS Primary Care) [employer](OMR S Flight Med) OUTPATIENT [id number] Notes Entered by: LOY HANCOCK 13 Dec 2019 1018 ------- ------- ------- ------- -- cough x 4days OJSE CURTIS 12/12 Sick at Home/Quarter s [employer](O MRS Flight Med) [facility]) OUTPATIENT [id number] JANUSZ 1 SPENCER HONEYCUTT 02/24 Released w/o Limitations [facility](O [facility] IMR Clinic) [employer](Richi Muñoz) OUTPATIENT [id number] AUDIOGR AM TERRANCE JULIAN 05/26 Released w/o Limitations [facility](S dianablake Muñoz ) [employer](OMR S Flight Med) OUTPATIENT [id number] JOEL HOLMAN S 05/27 Released w/o Limitations [employer](O MRS Flight Med) [facility]([facility]) OUTPATIENT [id number] Notes Entered by: BALWINDER CAIN 07 Aug 2020 0838 ------- ------- ------- ------- -- IVA SIERRA 08/07 Released w/o Limitations [facility] [employer] [facility](V irus Detecti on Center) [facility]) OUTPATIENT [id number] Notes Entered by: KIMBERLY DONNELLY 10 Aug 2020 0906 ------- ------- ------- ------- -- vdc ZIA GALLARDO 08/10 Sick at Home/Quarter s [employer] [facility](V irus Detecti on Center) [facility](HCO S Primary Care) TELE CONSULT [id number] Notes Entered by: OLIVIA GALLARDO 11 Aug 2020 0734 ------- ------- ------- ------- -- Negativ e COVID test ANNE-MARIE MAY 08/11 Released to Self Care [employer](H COS Primary Care) [facility]) OUTPATIENT [id number] [facility]/PHA ) SPENCER HONEYCUTT 11/10 Released w/o Limitations [facility](O MRS IMR Clinic) [facility]) TELE CONSULT [id number] Notes Entered by: Ollie PAGAN 30 Nov 2020 0947 ------- ------- ------- ------- -- [facility] STATUS FRANCISCO PAGAN 11/30 Released to Self Care [facility](O [facility] IMR Clinic) [employer](OMR S Primary Care_1) OUTPATIENT [id number] Notes Entered by: Crow SIMON 04 Dec 2020 1502 ------- ------- ------- ------- -- SAYRA Molina 12/04 Released w/o Limitations [facility](O MRS Primary Care_1) [facility](Vir us Detection Center) OUTPATIENT [id number] Notes Entered by: YENNI SPAULDING 23 Apr 2021 0957 ------- ------- ------- ------- -- VD AVANI BENNETT 04/23 Sick at Home/Quarter s [facility](V irus Detecti on Center) [facility](HCO S Primary Care) TELE CONSULT [id number] Notes Entered by: MARK SANTIAGO 23 Apr 2021 1112 ------- ------- ------- ------- -- AVANI GHOTRA 04/23 [facility](H COS Primary Care) [facility](OMR S Flight Med) TELE CONSULT [id number] Notes Entered by: Ollie PAGAN 13 May 2021 1530 ------- ------- ------- ------- -- [facility] REVIEW FRANCISCO PAGAN 05/13 Released to Self Care [facility] [facility](O MRS Flight Med) [facility](OMR S Primary Care_1) OUTPATIENT [id number] STEF GRANT 05/28 Released w/o Limitations [facility] [facility](O MRS Primary Care_1) [employer]([facility]) OUTPATIENT [id number] AUDIOGR CHANO PERALES 06/07 Released w/o Limitations [employer](P ublic Health) [employer](OMR S Flight Med) OUTPATIENT [id number] [facility] [address] WILLOW BARRIENTOS 06/17 Released w/o Limitations [employer](O MRS Flight Med) [facility] OUTPATIENT [id number] Theater Provider 01/06 Released w/o Limitations Theater Facilit y [id number] AMDS Outpatient [id number] ADENIKE DUTTA 09/08 Discharge Disposition: Home or Self Care [id number] AMDS 0310C-AF- C-[facility]th [facility] [place] Between Visit [id number] 03/20 Discharge Disposition: Home or Self Care 0310C-A F-C-66t h [facility] 0310C-AF- C-66th [facility] Between Visit [id number] 04/17 Discharge Disposition: Home or Self Care 0310C-A F-C-66t h [facility] 0310C-AF- C-66th [facility] Between Visit [id number] 06/130C-A F-C-t h [facility] [id number] C [facility] TeleHealth [id number] Other physica l and mental strain related to work VANITA MIRAMONTES 06/140C-A F-C-t h [facility] Procedures Combined list of: 1) Procedures from Department of [facility] facilities [facility], not all [facility] non-surgical procedures are included; 2) All procedures from the Department of Defense facilities. Procedure Procedure Type Code Date Perfomer Comments Sourc e THERAPEUTIC, PROPHYLACTIC, OR DIAGNOSTIC INJECTION (SPECIFY SUBSTANCE OR DRUG); SUBCUTANEOUS OR INTRAMUSCULAR 2017 DoD PURE TONE AUDIOMETRY (THRESHOLD); AIR ONLY 2017 [facility] PHYS/OTH QUALIFIED HEALTH PAPER BAG MACHINE OPERATOR QUALIFIED,EDUCATION, TRAIN,LICENSURE/REGU LATION (WHEN APPLICABLE) EDUC SER RENDERED TO PATS IN A GRP SETTING (EG,,OBESITY ,OR DIABETIC INSTRUCT) 2017 DoD THERAPEUTIC PROCEDURE,1 OR MORE AREAS,EACH 15 MINUTES;NEUROMUSCULA R REEDUCATION OF MOVEMENT,BALANCE,PROJECT MGR RDINATION,KINESTHETI C SENSE,POSTURE,AND/OR PROPRIOCEPTION FOR SITTING AND/OR STANDING ACTIVITIES 2017 DoD THERAPEUTIC PROCEDURE,1 OR MORE AREAS,EACH 15 MINUTES;NEUROMUSCULA R REEDUCATION OF MOVEMENT,BALANCE,PROJECT MGR RDINATION,KINESTHETI C SENSE,POSTURE,AND/OR PROPRIOCEPTION FOR SITTING AND/OR STANDING ACTIVITIES 2017 DoD PURE TONE AUDIOMETRY (THRESHOLD), AUTOMATED; AIR ONLY 2021 DoD PSYCHOLOGICAL OR NEUROPSYCHOLOGICAL TEST ADMINISTRATION, WITH [...] MANIPULATIVE THERAPY PERFORMED FOR MAINTENANCE RATHER THAN EVANGELICAL 2019 DoD PHYSICAL THERAPY EVALUATION:LOW COMPLEXITY,REQ:HIST W NO PERS FACT &/COMORB THAT IMPACT PLAN OF CARE;CLIN DECIS MAKING OF LOW COMPLEXITY,TYPICALLY ,20 MIN ARE SPENT [id number]-YR-[id number] W THE PATIENT &/FAMILY 2018 DoD TELE [...] SCORING AND DOCUMENTATION, PER STANDARDIZED INSTRUMENT 2018 [facility] ONLINE ASSESS &MANAG SERV PROVIDE,A QUAL NONPHYS HCP TO AN ESTABLISHED PAT/GUARDIAN,NOT ORIGINAT FRM RELAT ASSESS &MANAG SERV PROVIDE W/IN THE PREV 7 DAYS,USE THE [employer] 2018 DoD TELE ASSESS & MGT SRV PROV QUAL NONPHYS HLTH CARE PRO TO EST PAT,PARENT,GUARD NOT ORIG REL ASSESS & MGT SRV PROV W/IN PREV 7 DAYS NOR LEAD ASSESS & MGT SRV/PX W/IN NXT 24H/SOON APT; 11-20 MIN MED DIS 2018 DoD Non-Physician Phone Call To Patient/Provider Brief (5-10min) Non-Physician Phone Call To Patient/Provider Brief (5-10min) [id number] 2018 MAYDA BENOIT [facility] Non-Physician Phone Call To Patient/Provider Brief (5-10min) Non-Physician Phone Call To Patient/Provider Brief (5-10min) [id number] 2018 MAYDA BENOIT [facility] Preventive Medicine Administration Of Health Risk Questionnaire Patient-Focused Preventive Medicine Administration Of Health Risk Questionnaire Patient-Focused [id number] 2018 ALAYNA MURILLO [facility] Internet Med Svc Qual Nonphys Healthcare Prof Up To 7 Days Estab Patient Internet Med Svc Qual Nonphys Healthcare Prof Up To 7 Days Estab Patient [id number] 2018 SOLA XENIA [facility] Preventive Medicine Administration Of Health Risk Questionnaire Patient-Focused Preventive Medicine Administration Of Health Risk Questionnaire Patient-Focused [id number] 2018 SELBY XENIA [facility] Non-Physician Phone Call To Pt/Provider Intermed (11-20 min) Non-Physician Phone Call To Pt/Provider Intermed (11-20 min) [id number] 2018 MAYDA BENOIT [facility] Physician Supervised Group Educational Services Physician Supervised Group Educational Services [id number] 2017 GEMMA CHEEMA [facility] Physician Supervised Services Provision Of Educational Supplies Physician Supervised Services Provision Of Educational Supplies [id number] 2017 GEMMA CHEEMA [facility] Athletic Training Evaluation Low Complexity Athletic Training Evaluation Low Complexity 16847 2017 VALERIE ALATORRE [facility] Physical Therapy Neuromuscular Re-education Physical Therapy Neuromuscular Re-education 11574 2017 VALERIE ALATORRE 15 min exercise to [...] Low Complexity Athletic Training Evaluation Low Complexity 18640 2017 VALERIE ALATORRE [facility] Physical Therapy Neuromuscular Re-education Physical Therapy Neuromuscular Re-education 91114 2017 VALERIE ALATORRE 15 min exercise to develop balance, coordination, kinesthetic sense, posture, core stability, efficiency of muscle contraction, motor recruitment patterns quadriceps, hamstring, gastroc, soleus stretch quad sets SLR ABD, FLEX with quad sets clamshells non impact cardio; bike or elliptical as able - stop for pain bug DoD Physician Supervised Injection Intramuscular Antibiotic Physician Supervised Injection Intramuscular Antibiotic 74883 2017 LANI CAVANAUGH Laina [facility] Threshold Audiogram (Pure Tone) Threshold Audiogram (Pure Tone) 50740 2017 GALILEA RODRIGUEZ [facility] Physical or manipulative therapy performed for maintenance rather than samaritan KENN CAMPOS [facility] Taping Ankle Taping Ankle 59874 JOSE MANUEL CAMPOS C [facility] Physical Therapy Service Evaluation Low Complexity Physical Therapy Service Evaluation Low Complexity 87445 KENN CAMPOS [facility] Non-Physician Phone Call To Patient/Provider Brief (5-10min) Non-Physician Phone Call To Patient/Provider Brief (5-10min) [id number] JB PLAZA [facility] Waiver services; not otherwise specified (NOS) JB PLAZA [facility] Preventive Medicine Administration Of Health Risk Questionnaire Patient-Focused Preventive Medicine Administration Of Health Risk Questionnaire Patient-Focused [id number] ALAYNA MURILLO [facility] Psychometric Neuropsych Testing Battery Admin By Computer Psychometric Neuropsych Testing Battery Admin By Computer [id number] JUS SOLOMON I [facility] Threshold Audiogram (Pure Tone) Automated Threshold Audiogram (Pure Tone) Automated 0208T CHANO CASTORENA [facility] No data available for this section Ambulato ry Pharmacy Social History Combined list of available smoking, tobacco, and other social history from Department of Defense and Veterans Affairs facilities. Social History Type Response Date Comment Sourc e Sex Representation Male 03/31/2021 Unknow n Organization This section is an empty social history section. [facility] Tobacco Never-cigarette user Cigarette use:. 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 1Lt Mark Lerma PA-C [facility], [facility] [place] R[place], [place] ? Extracted from:Title: [facility]-06/10 day bp check Author: LOY HANCOCK EMT [...] questions at this time. ? Extracted from:Title: [facility]-bp check day 05/13 Author: LOY HANCOCK EMT [...] questions at this time. ? Extracted from:Title: [facility]- bp check day 04/12 Author: LOY HANCOCK [...] ? ? 1Lt Azul Peoples PA-C [facility] [address] [place] [address] Transcribed using [employer] 3D.? 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 Assessment Date/Time Source Assessment Type Assessment Skill Assessment Score Assessment Details No data available for this section
== END 2024-06-14 11:52 | disposition home or self-care (01) ==
PROVIDERS: PCP Internal Medicine; Visit Provider Internal Medicine
DX: S29.9XXS Unspecified injury of thorax, sequela (principal); R07.9 Chest pain, unspecified

== ENCOUNTER → 2024-06-14 11:01 | Outpatient (BNVA) | payer OTHER, SELFPAY | PROVIDERS: PCP Internal Medicine; Visit Provider Internal Medicine | DX: R07.9 Chest pain, unspecified (principal); S29.9XXS Unspecified injury of thorax, sequela; X58.XXXS Exposure to other specified factors, sequela | CPT/HCPCS: 96127; 99212 ==

== ENCOUNTER 2024-06-15 10:20 | Outpatient (REF) | payer OTHER, SELFPAY ==
--- OUTSIDE RECORDS SUMMARY | 2024-06-15 10:22 | XMS_ITS | Continuity of Care Document ---
Author Name [facility] Organization [facility] Care Team Providers Care Advertising Operations Coordinator Name Role Phone [facility] Unavailable Unavailable Problems Combined list of problems from Department of Defense and Veterans Affairs facilities. It does not include entries that were removed or entered in error. Problem Status Onset Date Problem Type Date of Resolution Comments Source Stress at work Active 06/14/2024 Diagnosis 309 C-AF-C-6 6th [facility] [employer] ASSESSMENT, POST-DEPLOYMENT, DOCUMENTED ON [id number] Inactive 01/06/2022 Condition [facility] Chronic rhinitis Active Condition DoD Gastro-esophageal reflux disease without esophagitis Active Condition DoD Other injury of other muscle(s) and tendon(s) at lower leg level, right leg Active Condition DoD No Known Problems Active Condition 309 [employer]-C-6 6th [facility] [employer] Medications Combined list of outpatient medications from Department of Defense and Veterans Affairs facilities.Medications provided include 1) outpatient medications from the last 15 months, and 2) patient-reported medications. Medication Details Route Status Patient Instructions Prescription Expires Prescription Number Last Dispense Date Ordering Provider Order Date Order Qty Source fluoride 1.1% topical paste See Instruct ions, Apply 1 thin ribbon to toothbru sh. Almira thorough ly at bedtime as directed by provider . do not rinse, eat or drink for 30 minutes. , # 51 g, 3 total refill(s ), Maintena angelique, Pharmacy : [facility] Ordered 4 2023 51.0 0310C-A F-C-66t h [facility] omeprazole 20 mg oral delayed release tablet 1 tab(s), Oral, BID, before a meal, # 42 tab(s), 0 total refill(s ), Maintena nce Oral (given by mouth) Ordered 2022 42.0 0090C-A F-C-4Th [facility] Sodium Fluoride (PreviDent 5000 Booster Eq.) Paste 1.1% Dental Take or use exactly as directed . Active 08/17/2024 [id number] 4 2023 51 [facility] Allergies, Adverse Reactions, Alerts Combined list of allergies from Department of Defense and Veterans Affairs facilities. It does not include entries that were removed or entered in error. Substance Category Reaction Severity Reaction type Status Date Reported Comments Source No Known Allergies Drug allergy (disorder) active 12/20/2017 [facility] Immunizations Combined list of available immunizations from the Department of Defense and Veterans Affairs facilities. Immunization Series Date Given Administered By Site Reaction Lot Number CVX Code Drug Pin Drafter Operator Status Comments Source influenza virus vaccine, inactivated 2021 [id number] N Shoul warren, left (delt oid) [id number] 150 ID Bueda April complet ed influenza virus vaccine, inactivat ed 03/29/22 Given 0090C-A F-C-4Th [facility]- SJ anthrax vaccine 1 2021 [id number] Emergent [employer] [facility] (MIP) complet ed anthrax vaccine DoD influenza, injectable, quadrivalent- pf 2020 [id number] 150 GlaxoSmithKli ne complet ed influenza , injectabl e, quadrival ent-pf 01/29/21 Given Ambulat ory Pharmac y Influenza, injectable, quadrivalent, preservative free 1 2020 [id number] 150 SmithKline (SKB) complet ed Influenza , injectabl e, quadrival ent, preservat lata free DoD typhoid Vi capsular polysaccharid e vac 2020 [id number] sanofi pasteur complet ed typhoid Vi capsular polysacch aride vac 12/04/20 Given Ambulat ory Pharmac y typhoid Vi capsular polysaccharid e vaccine 1 2020 [id number] 101 Sanofi Pasteur (PMC) complet ed typhoid Vi capsular polysacch aride vaccine DoD COVID Vaccine Pfizer 2020 Srikanth boogie Arm [id number] 208 PFIZER complet ed COVID Vaccine Pfizer 11/13/20 Given Ambulat ory Pharmac y SARS-COV-2 (COVID-19) vaccine, mRNA, spike protein, LNP, preservative free, 30 mcg/0.3mL dose 2 2020 CHANO CASTORENA [id number] 208 Blend Therapeutics, Inc (PFR) complet ed SARS-COV- 2 (COVID-19 ) vaccine, mRNA, spike protein, LNP, preservat lata free, 30 mcg/0.3mL dose DoD COVID Vaccine Pfizer 2020 sarahSeema boogie Price [id number] 208 PFIZER complet ed COVID Vaccine Pfizer 10/23/20 Given Ambulat ory Pharmac y SARS-COV-2 (COVID-19) vaccine, mRNA, spike protein, LNP, preservative free, 30 mcg/0.3mL dose 1 2020 TERRANCE BURNS Santiago [id number] 208 Pfizer, Inc (PFR) complet ed SARS-COV- 2 (COVID-19 ) vaccine, mRNA, spike protein, LNP, preservat lata free, 30 mcg/0.3mL dose DoD Human Papillomaviru s 9-valent vaccine 2019 [id number] 165 Merck & Company Inc complet ed Human Papilloma virus 9-valent vaccine 01/16/20 Given Ambulat ory Pharmac y influenza, injectable, quadrivalent 2019 [id number] 158 Seqirus complet ed influenza , injectabl e, quadrival ent 01/16/20 Given Ambulat ory Pharmac y influenza, injectable, quadrivalent, contains preservative 1 2019 [id number] 696 158 Seqirus (SEQ) complet ed influenza , injectabl e, quadrival ent, contains preservat lata DoD Human Papillomaviru s 9-valent vaccine 3 2019 [id number] 165 Merck (MSD) complet ed Human Papilloma virus 9-valent vaccine DoD Human Papillomaviru s 9-valent vaccine 2018 [id number] 165 Merck & Company Inc complet ed Human Papilloma virus 9-valent vaccine 04/08/19 Given Ambulat ory Pharmac y Human Papillomaviru s 9-valent vaccine 2 2018 [id number] 165 Merck (MSD) complet ed Human Papilloma virus 9-valent vaccine DoD influenza, injectable, quadrivalent- pf 2018 [id number] 150 Seqirus complet ed influenza , injectabl e, quadrival ent-pf 03/21/19 Given Ambulat ory Pharmac y Influenza, injectable, quadrivalent, preservative free 1 2018 [id number] 346 150 Seqirus (SEQ) complet ed Influenza , injectabl e, quadrival ent, preservat lata free DoD Human Papillomaviru s 9-valent vaccine 2018 [id number] 165 Merck & Company Inc complet ed Human Papilloma virus 9-valent vaccine 02/06/19 Given Ambulat ory Pharmac y Human Papillomaviru s 9-valent vaccine 1 2018 [id number] 165 Merck (MSD) complet ed Human Papilloma virus 9-valent vaccine DoD hepatitis A adult vaccine 2018 [id number] 52 GlaxoSmithKli ne complet ed hepatitis A adult vaccine 05/15/18 Given Ambulat ory Pharmac y hepatitis A vaccine, adult dosage 2 2018 [id number] 52 SmithKline (SKB) complet ed hepatitis A vaccine, adult dosage DoD influenza, injectable, quadrivalent- pf 2017 [id number] 150 GlaxoSmithKli ne complet ed influenza , injectabl e, quadrival ent-pf 02/21/18 Given Ambulat ory Pharmac y Influenza, injectable, quadrivalent, preservative free 0 2017 [id number] 150 SmithKline (SKB) complet ed Influenza , injectabl e, quadrival ent, preservat lata free DoD varicella virus vaccine 2017 [id number] 21 Merck & Company Inc complet ed varicella virus vaccine 12/04/17 Given Ambulat ory Pharmac y measles/mumps /rubella virus vaccine 2017 [id number] 03 Merck & Company Inc complet ed measles/m umps/rube lla virus vaccine 12/04/17 Given Ambulat ory Pharmac y measles, mumps and rubella virus vaccine 2 2017 [id number] 03 Merck (MSD) complet ed measles, mumps and rubella virus vaccine DoD varicella virus vaccine 1 2017 [id number] 21 Merck (MSD) complet ed varicella virus vaccine DoD measles/mumps /rubella virus vaccine 2017 [id number] 03 Merck & Company Inc complet ed measles/m umps/rube lla virus vaccine 10/25/17 Given Ambulat ory Pharmac y hepatitis A adult vaccine 2017 [id number] 52 GlaxoSmithKli ne complet ed hepatitis A adult vaccine 10/25/17 Given Ambulat ory Pharmac y varicella virus vaccine 2017 [id number] 21 Merck & Company Inc complet ed varicella virus vaccine 10/25/17 Given Ambulat ory Pharmac y measles, mumps and rubella virus vaccine 1 2017 [id number] 03 Merck (MSD) complet ed measles, mumps and rubella virus vaccine DoD varicella virus vaccine 1 2017 [id number] 21 Merck (MSD) complet ed varicella virus vaccine DoD hepatitis A vaccine, adult dosage 1 2017 [id number] 52 Tumotorizado.comine (SKB) complet ed hepatitis A vaccine, adult dosage DoD adenovirus vaccine, live 2017 [id number] 2 143 Teva Pharmaceutica complet ed adenoviru s vaccine, live 10/19/17 Given Ambulat ory Pharmac y tetanus, diphtheria, acellular pertu is 2017 [id number] 115 GlaxoSmithKli nd complet ed tetanus, diphtheri a, acellular pertussis 10/19/17 Given Ambulat ory Pharmac y meningococcal A,C,Y,W-135 (MCV4P) 2017 [id number] 114 sanofi pasteur complet ed meningoco ccal [...] diphtheria toxoid conjugate vaccine (MCV4P) 1 2017 [id number] 114 Sanofi Pasteur (PMC) complet ed meningoco ccal polysacch aride (groups A, C, Y and W-135) diphtheri a toxoid conjugate vaccine (MCV4P) DoD tetanus toxoid, reduced diphtheria toxoid, and acellular pertu is vaccine, adsorbed 1 2017 [id number] 115 [employer] (SKB) complet ed tetanus toxoid, reduced diphtheri a toxoid, and acellular pertussis vaccine, adsorbed DoD Adenovirus, type 4 and type 7, live, oral 1 2017 [id number] 2 143 [employer] (BRR) complet ed [...] Prevention' s HIV diagnostic algorithm. Refer to [facility] Lab Guide for additional information : [email or web address]/ [email or web address]/EPIL ab/Pages/la b_guide.asp x Testing performed by [...] Prevention' s HIV diagnostic algorithm. Refer to [facility] Lab Guide for additional information : [email or web address]/EPIL ab/Pages/la b_[email or web address] x Testing performed by Alannah powell. Performed by: Epidemiolog y Laboratory Service [facility] [address] [place] [address], [place] [address] 0090A-A F-C-4Th [facility]- [facility] Miscellan eous Sendouts Repository Sample.EPI RECEIVED 01/28 Result Comment: INTERPRETAT ION(S): Performed by: Epidemiolog y Laboratory Service [facility] [address] [place] [phone] 0090A-A F-C-4Th [facility]- SJ Vital Signs Combined list of inpatient and outpatient Vital Signs from Department of Defense and Veterans Affairs, ranging from 12 months to all on record, depending upon the facility. Vital Sign Value Date Comments Source BP Site Left arm 07/27/2022 12:37:00 0090C -AF-C-4Th [facility]-S[facility] Blood Pressure Manual Manual 07/27/2022 12:37:00 0329F-MS-B-4Th [facility] Systolic Blood Pressure 122 mm[Hg] 07/27/2022 12:37:00 9184S-SA-V-4Th [facility] Diastolic Blood Pressure 96 mm[Hg] 07/27/2022 12:37:00 7342A-EF-V-4Th [facility] Respiratory Rate 16 br/min 07/27/2022 12:37:00 8350Q-WJ-O-4Th [facility] Peripheral Pulse Rate 86 bpm 07/27/2022 12:37:00 8214X-XW-B-4Th [facility] Mean Arterial Pressure, Calc 105 mm[Hg] 07/27/2022 12:37:00 4102W-RK-I-4 Th [facility] Systolic Blood Pressure 119 mm[Hg] 07/25/2022 18:18:00 4492O-RF-O-4Th [facility] Diastolic Blood Pressure 86 mm[Hg] 07/25/2022 18:18:00 0601D-MU-W-4Th [facility] Blood Pressure Manual Manual 07/25/2022 18:18:00 2026B-QJ-Y-4Th [facility]-SJ BP Site Left arm 07/25/2022 18:18:00 0090C -AF-C-4Th [facility]-SJ Respiratory Rate 16 br/min 07/25/2022 18:18:00 1458S-NO-Q-4Th [facility] Peripheral Pulse Rate 92 bpm 07/25/2022 18:18:00 1544U-ZS-Q-4Th [facility] Mean Arterial Pressure, Calc 97 mm[Hg] 07/25/2022 18:18:00 9269G-ZN-P-4 Th [facility] Respiratory Rate 18 br/min 07/22/2022 18:49:00 3518M-AY-H-4Th [facility] Temperature Tympanic 36.5 Vivian 07/22/2022 18:49:00 1683V-UR-W-4Th [facility]SJ Peripheral Pulse Rate 78 bpm 07/22/2022 18:49:00 9880A-KQ-H-4Th [facility]SJ Systolic Blood Pressure 132 mm[Hg] 07/22/2022 18:49:00 3304N-RH-I-4Th [facility] Diastolic Blood Pressure 70 mm[Hg] 07/22/2022 18:49:00 5434P-PQ-A-4Th [facility] Mean Arterial Pressure, Calc 91 mm[Hg] 07/22/2022 18:49:00 0218Y-JC-W-4 Th [facility]-SJ BP Site Left arm 07/22/2022 18:49:00 0090C -AF-C-4Th [facility] Blood Pressure Manual Manual 07/22/2022 18:49:00 1168R-ER-I-4Th [facility] Peripheral Pulse Rate 98 bpm 07/13/2022 12:14:00 4756G-VL-E-4Th [facility]-SJ Temperature Oral 36.7 Vivian 07/13/2022 12:14:00 0069B-FT-P-4Th [facility] Respiratory Rate 18 br/min 07/13/2022 12:14:00 7407F-TQ-G-4Th [facility] Systolic Blood Pressure 134 mm[Hg] 07/13/2022 12:14:00 9930J-YP-C-4Th [facility] Diastolic Blood Pressure 84 mm[Hg] 07/13/2022 12:14:00 1785K-SX-Q-4Th [facility]SJ Mean Arterial Pressure, Calc 101 mm[Hg] 07/13/2022 12:14:00 2504I-HR-S-4 Th [facility]J Respiratory Rate 16 br/min 07/26/2022 11:58:00 0199M-FT-V-4Th [facility]-SJ BP Site Left arm 07/26/2022 11:58:00 0090C -AF-C-4Th [facility]-SJ Blood Pressure Manual Manual 07/26/2022 11:58:00 9318N-TN-Z-4Th [facility] Peripheral Pulse Rate 92 bpm 07/26/2022 11:58:00 8318Q-FN-E-4Th [facility] Systolic Blood Pressure 114 mm[Hg] 07/26/2022 11:58:00 2350W-VF-F-4Th [facility] Diastolic Blood Pressure 90 mm[Hg] 07/26/2022 11:58:00 2389R-MJ-Z-4Th [facility] Mean Arterial Pressure, Calc 98 mm[Hg] 07/26/2022 11:58:00 5445U-KC-L-4 Th [facility] Encounters Combined list of: 1) Encounters from Department of Veterans Affairs facilities going backup to the last 18 months, not all VA inpatient encounters are included; 2) Encounters from the Department of Defense facilities going backup to 280 months. Location Location Details Encounter Type Encounter Number Reason For Visit Attending Provider ADM Date DC Date Status Disposition [place] [address](Hea ring Conservat ion, BMT) OUTPATIENT [id number] MICHAEL GALILEA N 10/26 Released w/o Limitations [facility] [place] [address](H earing Conserv ation, BMT) [place] [address](Formerly [facility]) OUTPATIENT [id number] Notes Entered by: ROSS CAVANAUGH 30 Oct 2017 0728 ------- ------- ------- ------- -- Strep Prophyl axis LANI CAVANAUGH 10/30 Released w/o Limitations [facility] [place] [address](Formerly [facility] d) [place] [address]([facility]) OUTPATIENT [id number] Notes Entered by: KYAW EAST 03 Nov 2017 1020 ------- ------- ------- ------- -- allergy symptom s SANTY LAGUNA 11/03 Released w/o Limitations [facility] [place] [address](M Alpha) [place]) OUTPATIENT [id number] LT THIRD TOE IGT MARIA FERNANDA DEWITT 01/23 Released w/o Limitations [place] [place] OUTPATIENT [id number] Notes Entered by: NACHO PEÑA 07 Feb 2018 0544 ------- ------- ------- ------- -- RT KNEE IZABELA ZUÑIGA 02/07 Released with Work/Duty Limitations [place]) [place] Occupatio nal Health) OUTPATIENT [id number] USA[employer] RPP ROSI AGUILA 02/12 [place] Lim[place] Occupat ional Health) [place]) OUTPATIENT [id number] ATC #[id number] RT KNEE VALERIE ALATORRE 02/26 Released with Work/Duty Limitations [place]) [place]) OUTPATIENT [id number] atc- R KNEE F/U # VALERIE ALATORRE L 03/05 [place]ased [place] Lim[place] Hearing Conservat ion) OUTPATIENT [id number] EDUCATI ON and GEMMA DURAND 03/12 [place] Hearing Conserv ation) [place]) OUTPATIENT [id number] RT KNEE PN IVÁN CRUZ L 03/19 [place]ased [place] Lim[place]) [employer]([facility] S [facility]) OUTPATIENT [id number] [place] [address] JOEL HOLMAN 05/30 Released w/o Limitations [employer](O [facility] IMR Clinic) [employer](HCO S Primary Care) TELE CONSULT [id number] Notes Entered by: MAYDA BENOIT 29 Jun 2018 0757 ------- ------- ------- ------- -- MAYDA Álvarez 06/29 Immediate Referral [employer]([facility] Primary Care) [employer](HCO S Primary Care) TELE CONSULT [id number] Notes Entered by: JEFFERSON RODRIGUEZ 29 Jun 2018 1122 ------- ------- ------- ------- -- Request for s MAYDA BENOIT 06/29 Sick at Home/Quarter s [employer](H COS Primary Care) [employer](HCO S Primary Care) OUTPATIENT [id number] callejas splints ALAYNA MURILLO 07/09 Released w/o Limitations [employer](H COS Primary Care) [employer](HCO S Primary Care) OUTPATIENT [id number] allergi es ALAYNA MURILLO 07/30 Released w/o Limitations [employer](H COS Primary Care) [employer]([facility]) OUTPATIENT [id number] MHA ONLY ([phone]) PREFERS OLAMIDE SELBY XENIA 08/09 Released w/o Limitations [employer](O [facility] IMR Clinic) [employer]([facility]) OUTPATIENT [id number] Notes Entered by: GILBERTO CHASE 15 Aug 2018 1032 ------- ------- ------- ------- -- RECORD REVIEW FATMATA DUMONT 08/15 Released w/o Limitations [employer](O [facility] IMR [facility]) [employer](HCO S Primary Care) OUTPATIENT [id number] PHA RECORD CLOSURE ALAYNA MURILLO 08/15 Released w/o Limitations [employer](H COS Primary Care) [employer](R S Primary Care_1) TELE CONSULT [id number] Notes Entered by: YUMIKO LOCKHART SE 25 Sep 2018 1009 ------- ------- ------- ------- -- pt seen at the er and needs quarter s MAYDA BENOIT 09/25 Other Not Elsewhere Classified [employer](O MRS Primary Care_1) [employer](HCO S Primary Care) TELE CONSULT [id number] Notes Entered by: Laina PRAJAPATI 24 Oct 2018 0859 ------- ------- ------- ------- -- Network Results UC Back Pain 3.22.20 19 ALAYNA MURILLO 10/24 [employer](H COS Primary Care) [employer](HCO S Primary Care) TELE CONSULT [id number] Notes Entered by: CÉSAR HENSON Crow 06 Nov 2018 1125 ------- ------- ------- ------- -- Qtr/ Con leave for wisdom teeth being removed . [id number] MAYDA BENOIT 11/06 Other Not Elsewhere Classified [employer]([facility] Primary Care) [employer]([facility] Primary Care) OUTPATIENT [id number] rt leg pain ALAYNA MURILLO 11/19 Released w/o Limitations [facility] Primary Care) [facility] S Physical Therapy) OUTPATIENT [id number] Pain in unspeci fied lower leg KENN CAMPOS 12/03 Released w/o Limitations [facility](O MRS Physica l Therapy ) [facility] Primary Care) OUTPATIENT [id number] Rt leg pain X3days. XENIA SELBY 05/14 Released w/o Limitations [facility] Primary Care) [facility](Richi Muñoz) OUTPATIENT [id number] Audiogr am IAN VALENTINO O 05/16 Released w/o Limitations [employer](Raimla Muñoz ) [facility](O S Primary Care) OUTPATIENT [id number] leg cramp on last lap of PT test - stopped ALAYNA MURILLO 05/23 Released w/o Limitations [facility] Primary Care) [employer]([facility] S [facility] Clinic) OUTPATIENT [id number] [place] [id number] FATMATA CORRIGAN 05/30 Released w/o Limitations [employer](O MRS IMR Clinic) [facility](O S Primary Care) OUTPATIENT [id number] cough,s ore throat, running nose D2qfyik /not getting better. XENIA SELBY 06/16 Released w/o Limitations [facility] Primary [facility]) [facility](R S Physical Therapy) OUTPATIENT [id number] Pain in left leg CAMPOSKENN 07/01 Released w/o Limitations [facility](O MRS Physica l Therapy ) [facility] S Primary Care_1) TELE CONSULT [id number] Notes Entered by: Rebecca GOODE 07 Aug 2019 1445 ------- ------- ------- ------- -- JESUS VANCE 08/06 Advice Assessment [employer](O MRS Primary Care_1) [employer](HCO S Primary Care) OUTPATIENT [id number] PHA RECORD CLOSURE ALAYNA MURILLO 10/02 Released w/o Limitations [employer](H COS Primary Care) [employer](OMR S Flight Med) OUTPATIENT [id number] Notes Entered by: LOY HANCOCK 13 Dec 2019 1018 ------- ------- ------- ------- -- cough x 4days JOSE CURTIS 12/12 Sick at Home/Quarter s [employer](O MRS Flight Med) [employer]([facility]) OUTPATIENT [id number] JANUSZ 1 SPENCER HONEYCUTT 02/24 Released w/o Limitations [employer](O MRS IMR Clinic) [employer](Richi Muñoz) OUTPATIENT [id number] AUDIOGR AM TERRANCE JULIAN 05/26 Released w/o Limitations [employer](S dianablake Muñoz ) [employer](OMR S Flight Med) OUTPATIENT [id number] JOEL HOLMAN S 05/27 Released w/o Limitations [employer](O MRS Flight Med) [employer](Vir us Detection [facility]) OUTPATIENT [id number] Notes Entered by: BALWINDER CAIN 07 Aug 2020 0838 ------- ------- ------- ------- -- IVA SIERRA 08/07 Released w/o Limitations [employer](V irus Detecti on Center) [employer](Vir us Detection Center) OUTPATIENT [id number] Notes Entered by: KIMBERLY DONNELLY 10 Aug 2020 0906 ------- ------- ------- ------- -- vdc ZIA GALLARDO 08/10 Sick at Home/Quarter s [employer](V irus Detecti on Center) [employer](HCO S Primary Care) TELE CONSULT [id number] Notes Entered by: OLIVIA GALLARDO 11 Aug 2020 0734 ------- ------- ------- ------- -- Negativ e COVID test ANNE-MARIE MAY 08/11 Released to Self Care [employer](H COS Primary Care) [employer]([facility] S IMR Clinic) OUTPATIENT [id number] [facility]HA/PHA ) SPENCER HONEYCUTT 11/10 Released w/o Limitations [employer](O MRS IMR Clinic) [employer](OMR S [facility] Clinic) TELE CONSULT [id number] Notes Entered by: Ollie PAGAN 30 Nov 2020 0947 ------- ------- ------- ------- -- [facility] STATUS FRANCISCO PAGAN 11/30 Released to Self Care [employer](O MRS IMR Clinic) [employer](OMR S Primary Care_1) OUTPATIENT [id number] Notes Entered by: Crow SIMON 04 Dec 2020 1502 ------- ------- ------- ------- -- SAYRA Molina 12/04 Released w/o Limitations [employer](O MRS Primary Care_1) [employer](Vir us Detection Center) OUTPATIENT [id number] Notes Entered by: YENNI SPAULDING 23 Apr 2021 0957 ------- ------- ------- ------- -- VD AVANI BENNETT 04/23 Sick at Home/Quarter s [employer](V irus Detecti on Center) [employer](HCO S Primary Care) TELE CONSULT [id number] Notes Entered by: MARK SANTIAGO 23 Apr 2021 1112 ------- ------- ------- ------- -- AVANI GHOTRA 04/23 [employer](H COS Primary Care) [employer](OMR S Flight Med) TELE CONSULT [id number] Notes Entered by: Ollie PAGAN 13 May 2021 1530 ------- ------- ------- ------- -- D[facility] REVIEW FRANCISCO PAGAN 05/13 Released to Self Care [employer](O MRS Flight Med) [employer](OMR S Primary Care_1) OUTPATIENT [id number] STEF GRANT 05/28 Released w/o Limitations [employer](O MRS Primary Care_1) [employer]([facility]) OUTPATIENT [id number] AUDIOGR CHANO PERALES 06/07 Released w/o Limitations [employer](P ublic Health) [employer](OMR S Flight Med) OUTPATIENT [id number] [facility] [address] WILLOW BARRIENTOS 06/17 Released w/o Limitations [employer](O MRS Flight Med) [facility] OUTPATIENT [id number] Theater Provider 01/06 Released w/o Limitations [facility] 8344R-439 AMDS Outpatient [id number] ADENIKE DUTTA 09/08 Discharge Disposition: Home or Self Care 8344R-4 39 AMDS 0310C-AF- C-[facility] [employer] Between Visit [id number] 03/20 Discharge Disposition: Home or Self Care 0310C-A F-C-66t h [facility] [employer] 0310C-AF- C-66th [facility] [employer] Between Visit [id number] 04/17 Discharge Disposition: Home or Self Care 0310C-A F-C-66t h [facility] [employer] 0310C-AF- C-66th [facility] [employer] Between Visit [id number] 06/13 Discharge Disposition: Home or Self Care 309C-A F-C-t h [facility] [facility] [employer] [phone] Other physica l and mental strain related to work VANITA MIRAMONTES 06/14 Discharge Disposition: Home or Self Care 309C-A F-C-t h [facility] [place] Procedures Combined list of: 1) Procedures from Department of Veterans Affairs facilities going back up to thelast 18 months, not all [place] non-surgical procedures are included; 2) All procedures from the Department of Defense facilities. Procedure Procedure Type Code Date Perfomer Comments Sourc e THERAPEUTIC, PROPHYLACTIC, OR DIAGNOSTIC INJECTION (SPECIFY SUBSTANCE OR DRUG); SUBCUTANEOUS OR INTRAMUSCULAR 2017 [facility] PURE TONE AUDIOMETRY (THRESHOLD); AIR ONLY 2017 [facility] PHYS/OTH QUALIFIED HEALTH JUNIOR PROGRAMMER ANALYST QUALIFIED,EDUCATION, TRAIN,LICENSURE/REGU LATION (WHEN APPLICABLE) EDUC SER RENDERED TO PATS IN A GRP SETTING (EG,,OBESITY ,OR DIABETIC INSTRUCT) 2017 [facility] THERAPEUTIC PROCEDURE,1 OR MORE AREAS,EACH 15 MINUTES;NEUROMUSCULA R REEDUCATION OF MOVEMENT,BALANCE,CHUTE MAN RDINATION,KINESTHETI C SENSE,POSTURE,AND/OR PROPRIOCEPTION FOR SITTING AND/OR STANDING ACTIVITIES 2017 [facility] THERAPEUTIC PROCEDURE,1 OR MORE AREAS,EACH 15 MINUTES;NEUROMUSCULA R REEDUCATION OF MOVEMENT,BALANCE,CHUTE MAN RDINATION,KINESTHETI C SENSE,POSTURE,AND/OR PROPRIOCEPTION FOR SITTING AND/OR [...] MANIPULATIVE THERAPY PERFORMED FOR MAINTENANCE RATHER THAN BAHAI 2019 [facility] PHYSICAL THERAPY EVALUATION:LOW COMPLEXITY,REQ:HIST W NO PERS FACT &/COMORB THAT IMPACT PLAN OF CARE;CLIN DECIS MAKING OF LOW COMPLEXITY,TYPICALLY ,20 MIN ARE SPENT DAFZ-PR-NENZ W THE PATIENT &/FAMILY 2018 [facility] TELE [...] NONPHYS HCP TO AN ESTABLISHED PAT/GUARDIAN,NOT ORIGINAT FR RELAT ASSESS &MANAG SERV PROVIDE W/IN THE PREV 7 DAYS,USE THE [employer] 2018 [facility] TELE ASSESS & MGT SRV PROV QUAL NONPHYS HLTH CARE PRO TO EST PAT,PARENT,GUARD NOT ORIG REL ASSESS & MGT SRV PROV W/IN PREV 7 DAYS NOR LEAD ASSESS & MGT SRV/PX W/IN NXT 24H/SOON APT; 11-20 MIN MED DIS 2018 [facility] Non-Physician Phone Call To Patient/Provider Brief (5-10min) Non-Physician Phone Call To Patient/Provider Brief (5-10min) [id number] 2018 MAYDA BENOIT [facility] Non-Physician Phone Call To Patient/Provider Brief (5-10min) Non-Physician Phone Call To Patient/Provider Brief (5-10min) [id number] 2018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
== END 2024-06-15 10:21 | disposition home or self-care (01) ==
LOC: HO.HMGCX 10:20
PROVIDERS: PCP Internal Medicine; Visit Provider Internal Medicine
DX: R07.9 Chest pain, unspecified (principal); S29.9XXA Unspecified injury of thorax, initial encounter
CPT/HCPCS: 71046

== ENCOUNTER → 2024-06-15 10:30 | Outpatient (BNV) | payer OTHER, SELFPAY | PROVIDERS: PCP Internal Medicine; Visit Provider Radiology Diagnostic Radiology | DX: R07.9 Chest pain, unspecified (principal) | CPT/HCPCS: 71046 ==

== ENCOUNTER 2024-09-13 12:50 | Outpatient (REF) | payer OTHER, SELFPAY ==
--- NOTE | ~2024-09-13 | CT_ITS ---
EXAMINATION: CT CHEST WITHOUT CONTRAST CLINICAL INFORMATION: Chest pain DLP: 1196 mGY*cm COMPARISON: X-ray June 15, 2024 TECHNIQUE: Multidetector volumetric CT imaging of the chest was done. Axial MIP volume rendering provided. Sagittal and coronal reformatted images were obtained. This CT examination was performed using dose optimization techniques as appropriate, variously including the following: *Automated exposure control *Adjustment of mA and/or kV according to patient size (this includes techniques or standardized protocols for targeted exams where dose is matched to indication/reason for exam; i.e. extremities or head) *Use of iterative reconstruction technique FINDINGS: SENIOR QUALITY ASSURANCE ANALYST: Unchanged in appearance compared to x-ray LUNGS: The lungs are clear with no evidence of inflammation or nodules. MEDIASTINUM: The mediastinum is normal. CORONARY ARTERY CALCIFICATION: None visualized on this study. PLEURA: There is no pleural effusion. No pleural mass or thickening. AXILLA: No lymphadenopathy. UPPER ABDOMEN: Unremarkable. OSSEOUS STRUCTURES: Unremarkable. CT/CT chest wo IV con IMPRESSION: Unremarkable examination. Fleischner guidelines were followed. Electronically signed by: Adan Mendez MD 09/13/2024 01:42 PM EDT
== END 2024-09-13 12:51 | disposition home or self-care (01) ==
LOC: HO.CT 12:50
PROVIDERS: PCP Internal Medicine; Visit Provider Internal Medicine
DX: R07.9 Chest pain, unspecified (principal); S29.9XXS Unspecified injury of thorax, sequela
CPT/HCPCS: 71250

== ENCOUNTER → 2024-09-13 12:51 | Outpatient (BNV) | payer OTHER, SELFPAY | PROVIDERS: PCP Internal Medicine; Visit Provider Radiology Diagnostic Radiology | DX: R07.9 Chest pain, unspecified (principal) | CPT/HCPCS: 71250 ==

== ENCOUNTER 2025-01-07 13:51 | Outpatient (AMB) | payer OTHER, SELFPAY ==
--- OUTSIDE RECORDS SUMMARY | 2014-12-18 11:45 | XMS_ITS | Continuity of Care Document ---
Author Organization [facility] Address [address] [place] [address] Phone Care Team Providers Care Patient Financial Services Coordinator Name Role Phone Rachel Hill Unavailable Unavailable Allergies, Adverse Reactions, Alerts Substance Reaction Status Criticality No Known Allergies Active No Inform ation Medications Medication Instructions Dosage Effective Dates (start - stop) Status Comments nitrofurantoin monohydrate/macrocrys tals 100 mg capsule take 1 capsule by oral route every 12 hours with food 100 MG - No Longer Active Procedures Procedure Date URINALYSIS NONAUTO W/O SCOPE OFFICE/OUTPATIENT VISIT [facility] Advance Directives Directive Yes / No Effective Date File Name No Information Encounters Encounter Description Practice Location Reason(s) For Visit Diagnoses Date Provider Providers Copied on Encounter OFFICE/OUTPAT IENT VISIT [facility], [address] [place], [place], [id number], tel:[phone] [facility] dysuria (chief complaint) Infection, urinary tract NOSBody Mass Index between 19-24, adult Dec- 0-201 5 Michael Ramos. [address] [place], [place], [id number], [place]. tel:[phone] Referring Provider: Rachel Fernandez, [address] [place], [address]. tel:[phone] Family History Family Member Type Diagnosis Age At Onset No Information Payers Payer name Insurance type Covered constitution party ID Authoriza tion(s) No Information Social History Type Description Quantity Date Captured Comments Alcohol Use Details Unknown Caffeine Use Details Unknown Tobacco Use Status No Information Smoking Status Never smoker Non-Smoking Tobacco Use Details : No Details Available : No Details Available Sex Male Vital Signs Date / Time: Height Weight BMI Pulse Rate Blood Pressure Temperature Respiratory Rate Body Surface Area Head Circumference Head Circ. Percentile Wt./Paramjit. Percentile BMI percentile Pulse Ox Inhaled Ox 4:37 PM 71.00 in 70.125 kg (154.60 lbs) 21.5 6 kg/m eter (2) 70 /min 126/68 mm[Hg] 97.00 F 53 Chief Complaint And Reason For Visit From encounter dated '12/18/2014 15:45'. dysuria (chief complaint). Description: Onset: 2 Days. The severity of the problem is moderate. Pain scale: 6/10. The problem has worsened. The symptoms are intermittent. Presenting/Initial symptoms include dysuria, lower back pain and urgency. Symptoms are not associated with diabetes or recent cat heterization. Associated symptoms include dysuria, pressure and urgency. Pertinent negatives include abdominal pain, dribbling, fatigue, flank pain, frequency, hematuria, hesitancy, nausea, nocturia,pelvic pain, penile discharge, rash, retention or vomiting. Additional information: Pt has tried taking tylenol and drinking lemon water and cranberry juice. Pt is also c/o back pain. Reason For Referral Reason For Referral No Information History Of Present Illness Encounter Date Complaint History Of Prese nt Illness dysuria Onset: 2 Days. T he severity of the problem is moderate. Pain scale: 6/10. The problem has worsened. The symptoms are intermittent. Presenting/Initial symptoms include dysuria, lower back pain and urgency. Symptoms are not associated with diabetes or recent catheterization. Associated symptoms include dysuria, pressure and urgency. Pertinent negatives include abdominal pain, dribbling, fatigue, flank pain, frequency, hematuria, hesitancy, nausea, nocturia, pelvic pain, penile discharge, rash, retention or vomiting. Additional information: Pt has tried taking tylenol and drinking lemon water and cranberry juice. Pt is also c/o back pain. Functional Status Date Functional Assessmen t Pain Score 10 Pain Score 09/17 Instructions Date Instruction Additional Infor hazel Take medications as prescribed. Finish all antibiotics Rest, increase fluids, supportive care F/U with PCP if sxs worsen or persist Related to Infection, urinary tract NOS Assessments Type Assessment Date assessment Infection, urinary tract NOS Dec assessment Body Mass Index between 19-24, a dult Mental Status Date Cognitive Assessment Orientation - [place] ed to time, place, person, situation. Patient Care Teams Name Effective Dates (start - stop) Status Members No Information
--- OUTSIDE RECORDS SUMMARY | 2024-09-25 06:30 | XMS_ITS ---
Author Organization [facility] Address [address] [place] [address] Care Team Providers Care Clearance Cutter Name Role Phone Rohan CASTELAN, Sangita Primary Care Provider Destinee Salas [phone] Encounters Encounter Location Date Provider Diagnosis [facility] [address] [place] [address] 09/25/2024 Destinee [place]wood Plan Of Treatment No Information Progress Notes * Jovanny GORDONDOB:2000 (24 yo M)Acc No.[id number]:09/25/2024 Progress Notes Patient: Jovanny MONZON Provider: Laina [place] DPM :2000 A ge:24 Y S ex:Male Date:09/25/2024 Address[address] [place] [id number] Pcp:Sangita Madrigal MD Subjective: * Chief Complaints: * * Medical History: Objective: * Vitals: Assessment: Plan: * Treatment: * Images: * The named appointment provid er may or may not be the originator of this progress note, and it is not deemed complete until electronically signed by the appointment provider. Sign off status: Pending * Provider: Liana [place] DPM Date: 0 09/25/2024 Generated for Bryan ramirez/Fajoyce/eTransmitting on: 01/07/2025 03:09 PM EDT
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
[2025-01-07 14:01] VITALS: BP 132/86; PULSE 105; RESP 14; TEMP 36.9; O2SAT 96; BMI 31.3
--- OUTSIDE RECORDS SUMMARY | 2025-01-07 15:09 | XMS_ITS | Patient Health Record ---
Author Organization [facility] Address [address] [place] [address] Care Team Providers Care Gauge Controller Name Role Phone Sangita Madrigal MD Primary Care Provider Destinee Salas Unavailable [phone] Reason For Referral No Information Encounters Encounter Location Date Provider Diagnosis [facility] [address] [place] [address] 07/11/2024 Destinee Greenwood [address] [address] 09/18/2024 Destinee Greenwood Plan Of Treatment No Information Insurance Providers Payer Name Payer Address Payer Phone Subscriber Number Group Number Insured Name Patient Relationship to Insured Coverage Start Date Coverage End Date [facility] [address] [place] [id number] Jovanny Gordon Self - patient is the insured
== END 2025-01-07 15:50 | disposition home or self-care (01) ==
LOC: HO.HMCFM 13:51
PROVIDERS: PCP Internal Medicine; Visit Provider Internal Medicine
DX: M54.9 Dorsalgia, unspecified (principal)

== ENCOUNTER → 2025-01-07 13:51 | Outpatient (BNVA) | payer OTHER, SELFPAY | PROVIDERS: PCP Internal Medicine; Visit Provider Internal Medicine | DX: M54.9 Dorsalgia, unspecified (principal); G89.29 Other chronic pain; R07.9 Chest pain, unspecified | CPT/HCPCS: 81002; 99212 ==

== ENCOUNTER 2025-01-08 12:24 | Outpatient (REF) | payer OTHER, SELFPAY ==
--- OUTSIDE RECORDS SUMMARY | 2014-12-18 11:45 | XMS_ITS | Continuity of Care Document ---
Author Organization [facility] Address [address] [place] [address] Phone Care Team Providers Care Open Tenter Operator Name Role Phone Rachel Hill Unavailable Unavailable [...] Date URINALYSIS NONAUTO W/O SCOPE OFFICE/OUTPATIENT VISIT [facility] Advance Directives Directive Yes / No Effective Date File Name No Information Encounters Encounter Description Practice Location Reason(s) For Visit Diagnoses Date Provider Providers Copied on Encounter OFFICE/OUTPAT IENT VISIT [facility], [address] [place], [place], [id number], tel:[phone] [facility] dysuria (chief complaint) Infection, urinary tract NOSBody Mass Index between 19-24, adult Dec- 0-201 5 Michael Ramos. [address] [place], [place], [id number], [place]. tel:[phone] Referring Provider: Rachel Fernandez, [address] [place], [address]. tel:[phone] Family History Family Member Type Diagnosis Age At Onset No Information Payers Payer name Insurance type Covered democrat ID Authoriza tion(s) No Information Social History [...] Mental Status Date Cognitive Assessment Orientation - [place] ed to time, place, person, situation. Patient Care Teams Name Effective Dates (start - stop) Status Members No Information
--- OUTSIDE RECORDS SUMMARY | 2024-09-25 06:30 | XMS_ITS ---
Author Organization [facility] Address [address] [place] [address] Care Team Providers Care Clerk To Justice Name Role Phone Rohan CASTELAN, Sangita Primary Care Provider Destinee Salas [phone] Encounters Encounter Location Date Provider Diagnosis [facility] [address] [place] [address] 09/25/2024 Destinee [place] Plan Of Treatment No Information Progress Notes * Jovanny GORDONDOB:2000 (24 yo M)Acc No.[id number]:09/25/2024 Progress Notes Patient: Jovanny MONZON Provider: Laina [place] DPM :2000 A ge:24 Y S ex:Male Date:09/25/2024 Address:[address] [place] [address] [id number] Pcp:Sangita Madrigal MD Subjective: * Chief Complaints: [...] 0 09/25/2024 Generated for Bryan ramirez/Josiah/eTransmitting on: 01:49 PM EDT
--- NOTE | ~2025-01-08 | XR_ITS ---
EXAMINATION: Lumbar spine and dorsal spine. CLINICAL INDICATION: Dorsalgia. COMPARISON: None. TECHNIQUE: 3 views lumbar spine and 2 views dorsal spine. FINDINGS: Lumbar spine: There is normal lumbar lordosis. The vertebral heights and alignment is normal. There is no visible acute fracture, dislocation or subluxation seen. SI joints are symmetrical and normal. No lytic or sclerotic process seen. The soft tissues are normal. Dorsal spine: There is normal thoracic kyphosis. The vertebral heights and alignment is normal. There is mild dextroscoliosis of dorsal spine. No aggressive lytic or sclerotic process seen. XR/XR lumbar spine 2-3V IMPRESSION: Unremarkable dorsal spine exam except for mild dextroscoliosis of mid dorsal spine IMPRESSION: Unremarkable lumbar spine exam. Electronically signed by: Niko Garcia MD 01/08/2025 12:50 PM EDT
--- NOTE | ~2025-01-08 | XR_ITS ---
EXAMINATION: Lumbar spine and dorsal spine. CLINICAL INDICATION: Dorsalgia. COMPARISON: None. TECHNIQUE: 3 views lumbar spine and 2 views dorsal spine. FINDINGS: Lumbar spine: There is normal lumbar lordosis. The vertebral heights and alignment is normal. There is no visible acute fracture, dislocation or subluxation seen. SI joints are symmetrical and normal. No lytic or sclerotic process seen. The soft tissues are normal. Dorsal spine: There is normal thoracic kyphosis. The vertebral heights and alignment is normal. There is mild dextroscoliosis of dorsal spine. No aggressive lytic or sclerotic process seen. XR/XR thoracic spine 2V IMPRESSION: Unremarkable dorsal spine exam except for mild dextroscoliosis of mid dorsal spine IMPRESSION: Unremarkable lumbar spine exam. Electronically signed by: Niko Garcia MD 01/08/2025 12:50 PM EDT
--- OUTSIDE RECORDS SUMMARY | 2025-01-08 13:51 | XMS_ITS | Patient Health Record ---
Author Organization [facility] Address [address] [place] [address] Care Team Providers Care Precision Honer Name Role Phone Sangita Madrigal MD Primary Care Provider Destinee Salas Unavailable [phone] Reason For Referral No Information Encounters Encounter Location Date Provider Diagnosis [facility] [address] [place] [address] 07/11/2024 Destinee [place]wood [address] [address] 09/18/2024 Destinee [place] Plan Of Treatment No Information Insurance Providers Payer Name Payer Address Payer Phone Subscriber Number Group Number Insured Name Patient Relationship to Insured Coverage Start Date Coverage End Date [facility] [address] [place] [id number] Jovanny Gordon Self - patient is the insured
== END 2025-01-08 12:25 | disposition home or self-care (01) ==
LOC: HO.HMGCX 12:24
PROVIDERS: PCP Internal Medicine; Visit Provider Internal Medicine
DX: M54.50 Low back pain, unspecified (principal)
CPT/HCPCS: 72070; 72100

== ENCOUNTER → 2025-01-08 12:29 | Outpatient (BNV) | payer OTHER, SELFPAY | PROVIDERS: PCP Internal Medicine; Visit Provider Radiology Diagnostic Radiology | DX: M41.80 Other forms of scoliosis, site unspecified (principal) | CPT/HCPCS: 72070; 72100 ==

== ENCOUNTER 2025-03-25 14:26 | Outpatient (AMB) | payer OTHER, SELFPAY ==
--- OUTSIDE RECORDS SUMMARY | 2024-09-25 05:30 | XMS_ITS ---
Author Organization [facility] Address [address] [place] [address] Care Team Providers Care Vaccines Solutions Specialist Name Role Phone Rohan CASTELAN, Sangita Primary Care Provider Destinee Salas [phone] Encounters Encounter Location Date Provider Diagnosis [facility] [address] [place] [address] 09/25/2024 Destinee [place] Plan Of Treatment No Information Progress Notes * Jovanny GORDONDOB:2000 (25 yo M)Acc No.[id number]:09/25/2024 Progress Notes Patient: Jovanny MONZON Provider: Laina [place] DPM :2000 A ge:24 Y S ex:Male Date:09/25/2024 Address[address] [place] [id number] Pcp:Sangita Madrigal MD Subjective: * Chief Complaints: * * Medical History: Objective: * Vitals: Assessment: Plan: * Treatment: * Images: * The named appointment provid er may or may not be the originator of this progress note, and it is not deemed complete until electronically signed by the appointment provider. Sign off status: Pending * Provider: Laina [place] DPM Date: 0 09/25/2024 Generated for Bryan ramirez/Josiah/eTransmitting on: 05/26/2024 06:44 PM EST
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
[2025-03-25 14:32] VITALS: BP 116/74; PULSE 94; RESP 14; TEMP 36.9; O2SAT 97; BMI 33.3
--- OUTSIDE RECORDS SUMMARY | 2025-03-25 18:44 | XMS_ITS | Patient Health Record ---
Author Organization [facility] Address [address] [place] [address] Care Team Providers Care Quality Assurance Supervisor Body Name Role Phone Sangita Madrigal MD Primary Care Provider Destinee Salas Unavailable [phone] Reason For Referral No Information Encounters Encounter Location Date Provider Diagnosis [facility] [address] [place] [address] 07/11/2024 Destinee Greenwood [address] [address] 09/18/2024 Destinee Greenwood Plan Of Treatment No Information Insurance Providers Payer Name Payer Address Payer Phone Subscriber Number Group Number Insured Name Patient Relationship to Insured Coverage Start Date Coverage End Date [facility] [address] [place] [id number] Jovanny Gordon Self - patient is the insured
== END 2025-03-25 14:55 | disposition home or self-care (01) ==
LOC: HO.HMCFM 14:27
PROVIDERS: PCP Internal Medicine; Visit Provider Internal Medicine
DX: E66.9 Obesity, unspecified (principal); Z68.33 Body mass index [BMI] 33.0-33.9, adult

== ENCOUNTER → 2025-03-25 14:26 | Outpatient (BNVA) | payer OTHER, SELFPAY | PROVIDERS: PCP Internal Medicine; Visit Provider Internal Medicine | DX: E66.9 Obesity, unspecified (principal) | CPT/HCPCS: 99212 ==